=== PATIENT | female | born 1990 | race Caucasian/White ===

== ENCOUNTER 2017-01-27 09:47 | Inpatient (IN) | payer OTHER ==
--- NOTE | 2017-01-26 21:36 | PDHPUP ---
History & Physical Update H&P update statement: This history and physical update is based on an assessment of the patient which was completed after admission or registration (within 24 hours), but prior to the surgery/procedure. 1. Bilateral~Hip Dyplasia, Left side symptomatic with~resultant labral tear 2. Left~Femoroacetabular impingement (RONAK) Cam type, 3. Left excessive femoral ante-torsion (48 degrees) HISTORY OF PRESENT ILLNESS: Akankshais a 25 y.o.~~~active female~who I have had the pleasure to consult on today.~I have enjoyed meeting her. She~lives in [place], [place]. 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 ~She~is ; she~has 3~children. ~Akanksha enjoys running, walking, hiking and working out but not active now. Robyn's left~hip pain started in~January~2012, with no~recalled trauma or injury, and with no~previous complaints.~Akankshadoes not have~a known history of hip dysplasia. Presentation today is of~anterior, groin left~hip pain. ~The hip does~wake her~ at night and does~click and catch on her. Sitting can be uncomfortable~for her. Akankshadoes~report suffering from lower back pain episodes and she has scoliosis. Akankshahas~participated in physical therapy for 1.5 years~and has not~tried other conservative measures including hip injections . She~has not~received sufficient symptomatic improvement. Akankshahas~utilized medication for pain management, including NSAID and OTC acetaminophen. Akankshahas used medication for 3 years. Akankshahas occasional clicking on the right. Akankshaunderstands that she~has a hip and pelvis problem which should be researched and wishes to get a better understanding of her~hip status, followed by an establishment of a treatment strategy, hoping she~would be able to get back to her~well being active life. History: Past medical history: ~ None which is relevant Relevant familial history: None which is relevant Past surgical history: Bladder Surgery in 1999 Akankshadenies problematic issues with general anesthesia in the past. I have reviewed, verified and agree with the past medical, surgical, family and social history. Current Medications:~has a current medication list which includes the following prescription(s): ibuprofen and norgestimate-ethinyl estradiol. ALLERGIES:~has No Known Allergies. Objective: Physical Examination: Akankshais 5~feet 6~inches tall and weighs~155~Lbs. Akankshais AAO x3; she~is well -nourished, in NAD. Skin is warm and dry. ~Breathing is non-labored. ~CV with RRR by pulse. Abdomen is soft, NTND. Currently, she~walks with a normal~gait. Trendelenburg sign is negative~and proprioception~is reduced, both~sides. She~presents~with moderate~signs of joint laxity.~Beightons Score: 5 She~is fit looking. ~~ Lower spine examination is negative~for sciatic or femoral nerve irritation with negative~SLR &~femoral stretch tests. Range of motion of the spine is normal~for flexion, extension, and rotations, with no~associated pain. Strength, Sensation and pulses are normal - bilaterally Ankles and knees exams are normal~and no~mal-alignment is evident. She~has~no leg length discrepancy. Thigh circumference is symmetric~with no evidence for muscle atrophy~on both~ sides. Hip ROM (degrees): FL ER At 90~hip FL IR At 90~hip FL AB AD EX IR Neutral hip ER Neutral hip R 115 75 35 40 15 10 55 50 L 110P 45 50 45 5 10 70 30 (Pain inhibition) Specific hip and pelvis tests: Quadrant ARCHIE Roll Add. Longus R + + Negative Negative L +++ +++ Negative +++ Glut. Med ITB Pos. Imp R Negative 5/5 strength Negative 5/5 strength Negative L Negative 5/5 strength Negative 5/5 strength Negative Squeeze test measured normal Bony Symphysis pubis is pain free~to touch while concentric activity of the rectus abdominis, does not~produce pain at its insertion. Ilio Psos specific tests are negative for pain during cycling for both hips~and remarkable for no snap. HF has good strength, non-painful both hips. Anterior~capsule tenderness on the left. Greater trochanteric burse is pain free~on both hips. Piriformis tests: FAIR is negative, with no~local signs of neuritis related to sciatic nerve. SIJs examination is produces pain on left side~with normal~ARCHIE in relation and local tenderness. Hamstrings tests are negative~functional contraction and positive~tendinopathy the left hip~at insertion. On a daily basis, the following percentages reflect Rashads overall total pain: Deep hip: 90% Left SIJ: 10% Imaging: Radiology studies which I~have personally reviewed, analyzed and measured are below: XR: AP of the hip and pelvis: Performed in a good~technique Coccyx to pubic symphysis distance 3.3~cm. Upright. Zero degrees. [place]~Lines are interrupted on the left.~~~~~~~~~~~~~~~~~~~~~~~ No~Pathological signs are seen in the Symphysis Pubis. No~Pathological signs are seen at the Ischial~tuberosity. ~ Specific measurements show: NSA~ LCE Sourcil~Angle Sharp's angle Lat. Cam Lat. Pincer C.Over~sign Head~Coverage % ATDmm R 141 10 16 47 + - - 51 N L 134 -8 27 56 + - - 46 N Pos. wall sign ISS NAD ~~Dysplasia Comments R Negative Negative 26.2~mm +++ L Negative Negative 25.7~mm +++ Sclerosis Sup. Lat. OA Cysts Joint Space-WBZ Joint Space-Medial R + Negative Negative 7.5~mm 5.4~mm L + Negative Negative 7.5~mm 7.9~mm X Table lateral: Anterior cam lesion is seen~on both hips. Alpha Angle: ~ Right 71~degrees Left 67~degrees CT MEASUREMENTS: Right hip: Lateral center edge angle: 11 degrees Equatorial acetabular version angle: 29 degrees anteverted. Cranial acetabular version angle: 19 degrees anteverted. Femoral neck shaft angle: 140 degrees. Right femoral torsion measures 19 degrees. Left hip: Lateral center edge angle: 5 degrees Equatorial acetabular version angle: 27 degrees anteverted. Cranial acetabular version angle: 13 degrees anteverted. Femoral neck shaft angle: 141 degrees Left femoral torsion measures 48 degrees. Impression and plan:Zoran Valeis a 25 y.o.~active female~suffering from symptomatic left~hip pain due to Left Hip Dyplasia with symptomatic~labral tear and~Femoroacetabular impingement (RONAK) Cam type,~causing significant disability to her~and altering~ her~sport and life activities. She has similar radiographic features on the right side. Physical examination, imaging, and her~story correspond with the diagnosis mentioned above. I explained that hip dysplasia is a condition wherein the hip joint has excessive play~and instability due to a variety of factors, including the depth and adequacy of the socket, the orientation of the femur bone, and ligament laxity around the hip joint. Dysplasia ranges in severity from borderline to oleg, with treatment options being specific to the specific nature of the problem. Left untreated, the instability in the hip joint can cause progressive tearing of the labrum and deterioration of the surface cartilage, ultimately resulting in progressive osteoarthritis of the hip. I explained that femoroacetabular impingement (RONAK - Cam type) arises due to a bony or soft tissue conflict between the femur (ball) and acetabulum (socket) caused by an abnormality in the shape of the femoral head and neck. Over time, repetitive impingement can result in damage to the labrum and adjacent surface cartilage within the socket, ultimately giving rise to progressive osteoarthritis of the hip. I explained that although a labral tear can be a source of pain, it is rarely the root of the problem and typically occurs secondary to an underlying abnormality in the shape and mechanics of the hip joint. I reviewed conservative treatment options for Dysplasia and RONAK including activity modification to avoid positions of impingement or instability, physical therapy, non-steroidal anti-inflammatory medications, and various injections (corticosteroid and PRP) aimed at reducing inflammation in the hip joint or/and preventing dynamic instability and impingement. PRP injections may promote healing and reduce symptoms in certain cases but it will not repair chronically damaged tissue. Although these measures may help to buy time~and reduce current level of symptoms, they are not a definitive solution to the problem given the underlying abnormality in the shape of the hip joint. Patients who have failed conservative management and continue to experience symptoms are candidates for definitive surgical treatment, which may consist of hip arthroscopy alone or in combination with more invasive bony realignment procedures of the hip socket and/or femur called periacetabular osteotomy (RYLIE) or derotational femoral osteotomy (DFO). Hip arthroscopy typically includes treating the labrum with either repair or reconstruction of the torn labrum; as well as addressing the underlying abnormalities by restoring the normal shape to the hip joint. If the cartilage is damaged a Microfracture surgical procedure may also be necessary to help stimulate the growth of fibrocartilage. If a patient requires a labral reconstruction or a Microfracture, the initial rehabilitation from the surgery may take longer, but the intermediate project manager results are typically favorable. I reviewed the technical aspects of hip arthroscopy including risks, benefits, and expected course of recovery. Robyn~understands that hip arthroscopy is a minimally invasive outpatient procedure carried out through small incisions on the outer aspect of the hip joint. During surgery, the labral tear will be identified and either repaired or reconstructed~using bone anchors and suture material. Additionally, any excessive bone will be removed with a high-speed noelle to reshape the hip joint and restore normal anatomy. Risks include infection, bleeding, injury to nearby nerves or vessels, stiffness, persistent pain, instability, venous thromboembolic disease, and traction related complications including temporary foot numbness. Rarely, revision surgery may be required to address these problems. Overall recovery takes approximately 4~~ 8~months depending on the extent of damage and degree of repair. In the event that the labral tissue quality is inadequate for successful repair and healing, Robyn~understands that a labral reconstruction will be performed. This procedure entails placing a cadaver tissue graft within the hip joint and stabilizing it with bone anchors to build a new labrum. The overall recovery time for labral reconstruction is similar to that of labral repair, although the surgical procedure takes longer to perform. I reviewed the technical aspects of periacetabular osteotomy (RYLIE) including risks, benefits, and expected course of recovery. Robyn~understands that RYLIE is an inpatient procedure carried out through two medium sized incisions on the front and back of the hip joint. The hip socket is cut, realigned, and stabilized with 2 ~3 internal screws. Risks include infection, bleeding, injury to nearby nerves or vessels, stiffness, persistent pain, instability, failure of bony healing, implant related complications, and venous thromboembolic disease. Rarely, revision surgery may be required to address these problems. Risks, potential complications, side effects and recovery from surgical procedure were discussed in length. We explained how this surgery is an open procedure, and though patients tend to do well in the long-term, it involves significant pain in the first 2-4 weeks post-op and a rather lengthy rehab.~Overall recovery takes approximately 6 ~12~months depending on the extent of damage and degree of repair. Akankshaunderstands that she~will undergo hip arthroscopy 1 week prior to the RYLIE to address damage inside the hip joint. Akankshaunderstands that hip arthroscopy and RYLIE are two separate procedures that are best performed one week apart, with the arthroscopy commencing first to "tighten up" any pathology evident in the hip joint (labral repair, etc.) and the RYLIE open procedure occurring 7-10 days later to realign the acetabulum. Akankshawill review the info presented. In order to obtain more detailed information regarding the alignment, orientation, and shape of the bony hip and pelvis I will order a CT scan to be performed. The results of the CT scan, including femoral torsion and acetabular version measured values and 3D images, will aid me in deciding on the best treatment strategy and surgical pre-planning. In order to evaluate the integrity of the surface cartilage within the hip joint , I will order a delayed gadolinium enhanced MRI of cartilage (dGEMRIC). This study will determine whetherBenitezis a good candidate for hip preservation surgery. Akankshawill talk with our surgical attendant about possible surgery dates. Akankshais happy with this plan. I have also supplied her~with handouts, outlining the expected surgical treatment and rehab involved. I wish~Akankshaall the best, ~~ Sunny Ren MD
[~2017-01-27 09:47] MED LIST: BUPIVACAINE/EPI 0.25% 30 ML SDV ONE; MIDAZOLAM 2 MG/2 ML VIAL IVP ONE; SCOPOLAMINE HYDROBROMIDE 1.5 MG PATCH TD ONE
[2017-01-27] MEDS ORDERED: ceFAZolin 2 GM/DEXTROSE 100 ML IV ONE (10:00)
[2017-01-27] MEDS ORDERED: ACETAMINOPHEN 500 MG TAB PO ONE (10:00)
[2017-01-27] MEDS ORDERED: PREGABALIN 150 MG CAP PO ONE (10:00)
[2017-01-27] MEDS ORDERED: LIDOCAINE 1% 2 ML INJ ID PRN (10:11)
[2017-01-27] MEDS ORDERED: LR 1,000 ML IV ONE (10:11)
--- NOTE | 2017-01-27 10:23 | PDANEPAE ---
ANE History of Present Illness Patient presents for surgery ANE Past Medical History - Cardiovascular History Hx Hypertension: No Hx Arrhythmias: No Hx Chest Pain: No Hx Coronary Artery / Peripheral Vascular Disease: No Hx CHF / Valvular Disease: No Hx Palpitations: No - Pulmonary History Hx COPD: No Hx Asthma/Reactive Airway Disease: No Hx Recent Upper Respiratory Infection: No Hx Oxygen in Use at Home: No - Neurologic History Hx Cerebrovascular Accident: No Hx Seizures: No Hx Dementia: No - Endocrine History Hx Diabetes: No - Renal History Hx Renal Disorders: Yes - Liver History Hx Hepatic Disorders: No - Neurological & Psychiatric Hx Hx Neurological and Psychiatric Disorders: No - Cancer History Hx Cancer: No - Congenital Disorder History Hx Congenital Disorders: Yes - GI History Hx Gastrointestinal Disorders: No - Chronic Pain History Chronic Pain: Yes (bilateral hips) ANE Review of Systems Review of systems is: negative - Exercise capacity Exercise capacity: >=4 METS METS (RN): 5 METS ANE Patient History - Allergies Allergies/Adverse Reactions: No Known Allergies Allergy (Verified 12/19/16 11:09) - Home Medications Home Medications: Acetaminophen [Tylenol ES 500 mg (*)] 500 mg PO DAILY PRN 12/06/16 [Last Taken Unknown] Ferrous Sulfate [Slow Fe 140 MG (*)] 140 mg PO DAILY 12/06/16 [Last Taken Unknown] Ibuprofen [Motrin (*)] 400 mg PO DAILY PRN 12/06/16 [Last Taken Unknown] Loratadine [Claritin 10 mg] 10 mg PO DAILY PRN 12/06/16 [Last Taken Unknown] Multivitamins [Multivitamin (*)] 1 each PO DAILY 12/06/16 [Last Taken Unknown] Naproxen Sodium [Aleve 220 MG (*)] 220 mg PO DAILY PRN 12/06/16 [Last Taken Unknown] Norgestimate-Ethinyl Estradiol [Sprintec] 1 each PO DAILY 12/06/16 [Last Taken Unknown] - NPO status NPO Since - Liquids (Date): 01/26/17 NPO Since - Solids (Date): 01/26/17 NPO Since - Solids (Time): 20:00 - Anes Hx Anes Hx: post operative nausea - Smoking Hx Smoking Status: Never smoked - Family Anes Hx Family Hx Anesthesia Complications: none ANE Labs/Vital Signs - Vital Signs Blood Pressure: 125/88 Heart Rate: 111 Respiratory Rate: 16 O2 Sat (%): 99 Height: 167.64 cm Weight: 68.039 kg ANE Physical Exam - Airway Mallampati Score: Class 1 - Pulmonary Pulmonary: no respiratory distress - Cardiovascular Cardiovascular: regular rate and rhythym - ASA Status ASA Status: II (Prominent upper incisors) ANE Anesthesia Plan Anesthesia Plan: general endotracheal anesthesia (RBA discussed, patient declines pre-op epidural but consents to PO epidural and or ss FNB in PACU if needed. )
[2017-01-27] MEDS ORDERED: fentaNYL 100 MCG/2 ML INJ ONE (10:26)
[2017-01-27] MEDS ORDERED: PROPOFOL 200 MG/20 ML VIAL ONE (10:26)
[2017-01-27] MEDS ORDERED: DEXAMETHASONE 4 MG/ML VIAL ONE (10:26)
[2017-01-27] MEDS ORDERED: PROPOFOL/EMULSION 500 MG/50 ML BOTTLE IV ONE ×2 (10:26→14:15)
[2017-01-27] MEDS ORDERED: LIDOCAINE 2% 5 ML SDV ONE (10:27)
[2017-01-27] MEDS ORDERED: ONDANSETRON 4 MG/2 ML VIAL ONE (10:27)
[2017-01-27] MEDS ORDERED: MIDAZOLAM 2 MG/2 ML VIAL ONE (10:42)
[2017-01-27] MEDS ORDERED: METOCLOPRAMIDE 10 MG/2 ML VIAL ONE (12:44)
[2017-01-27] MEDS ORDERED: SUGAMMADEX SODIUM 200 MG/2 ML VIAL IVP ONE (12:44)
[2017-01-27] MEDS ORDERED: MINERAL OIL 10 ML VIAL ONE (12:52)
[2017-01-27] MEDS ORDERED: ROCURONIUM 50 MG/5 ML VIAL ONE (13:07)
[2017-01-27] MEDS ORDERED: HYDROmorphONE/DILAUDID 2 MG/ML INJ ONE ×2 (13:12→15:58)
[2017-01-27] MEDS ORDERED: KETAMINE 100 MG/10 ML SYR ONE (15:02)
[2017-01-27] MEDS ORDERED: KETOROLAC 30 MG/1 ML SDV ONE (15:59)
[2017-01-27] MEDS ORDERED: PROMETHAZINE HCL 25 MG/ML INJ IVP PRN (16:52)
[2017-01-27] MEDS ORDERED: MEPERIDINE 25 MG/ML SYR IVP PRN (16:52)
[2017-01-27] MEDS ORDERED: ONDANSETRON 4 MG/2 ML VIAL IVP PRN ×2 (16:52→18:26)
[2017-01-27] MEDS ORDERED: ALBUTEROL 3 ML DEYVIAL IH PRN (16:52)
[2017-01-27] MEDS ORDERED: OXYCODONE/APAP 5/325 TAB PO PRN (16:52)
[2017-01-27] MEDS ORDERED: NALOXONE HCL 0.4 MG/ML INJ IVP PRN ×2 (16:52→18:30)
[2017-01-27] MEDS ORDERED: fentaNYL 100 MCG/2 ML INJ IVP PRN (16:52)
[2017-01-27] MEDS ORDERED: HYDROmorphONE/DILAUDID 1 MG/ML SYR IVP PRN (16:52)
--- NOTE | 2017-01-27 17:40 | POSTANESTH ---
Post Anesthetic Evaluation Cardiovascular Status: Normal, Stable Respiratory Status: Requires Airway Assist Level of Consciousness/Mental Status: Moderately Sleepy Pain Control: Adequate, Prn Tx Ordered Nausea/Vomiting Control: Adequate, Prn Tx Ordered Complications Possibly Related to Anesthesia: None Noted
[2017-01-27] MEDS ORDERED: POLYETHYLENE GLYCOL 3350 17 GM PKT PO PRN (18:26)
[2017-01-27] MEDS ORDERED: ONDANSETRON DISINTEGRATING 4 MG TAB PO PRN (18:26)
[2017-01-27] MEDS ORDERED: MAGNESIUM HYDROXIDE 30 ML UDCUP PO PRN (18:26)
[2017-01-27] MEDS ORDERED: LACTULOSE 20 GM/30 ML UDCUP PO PRN (18:26)
[2017-01-27] MEDS ORDERED: BISACODYL 10 MG SUPP PR PRN (18:26)
[2017-01-27] MEDS ORDERED: HYDROmorphONE/DILAUDID 1 MG/ML SYR IVP ONE (18:30)
[2017-01-27] MEDS ORDERED: HYDROmorphONE/DILAUDID 6 MG/30 ML PCA IV PRN (18:30)
[2017-01-27] MEDS: SENNOSIDES/DOCUSATE SODIUM TAB PO SCH (20:35)
--- NOTE | 2017-01-27 21:36 | SUROPNOTE ---
MEHNAZ Operative Report - Surgery Surgery was performed at [facility] on 01/27/17 ~~~~~~ ~~ OPERATION NOTE~on Robyn Meng Diagnosis: 1. Left~Femoroacetabular impingement (RONAK) Cam type, Mixed type, Cartilage damage 2. Left~Hip Dyplasia Indication: Failure to obtain satisfactory results with long standing conservative measures. Operation~1:~Left~Arthroscopic Labral repair, Debridement of loose cartilage flap + micro fracture of acetabulum, CAM resection, Synovectomy, Capsular repair Surgeon: ~Obi Rios MD Bus Cleaner:~Loc ZAVALA Anaesthetic:~General Findings~~Left~Hip: Labrum: Torn and Frayed around 12-4~O'clock.~attached to inside-out flap, very hypertrophic Acetabulum: Cartilage damage grade 4-dysplasia flap,~extending around chondrolabral junction, circumferentially, from 12 (bubble)~to 4, 20-50% rim to acatabular fossa Fovea: Partial tear of LT Femoral Head: Normal cartilage Synovium: severe~synovitis Peripheral Compartment: Anterolateral CAM between 12~Oclock superiorly and 5~O clock anteriorly - minimal Procedure: Supine on operating table. General anaesthetic. Antibiotics given. Standard traction set up, without perineal post. A spinal needle was guided to the femoral head neck junction and traction gradually applied with the joint vented. Local anesthetic infiltrated into the skin around the portals. Once 15mm of distraction was achieved the hip needle was then passed into the joint staying as close to the femoral head as possible. A Nytenol wire was passed through the hip needle ensuring that it passed all the way to the fovea to confirm central placement of the needle. Skin was incised and then the portals sequentially dilated to 7 mm. Switching stick inserted and 30 scope passed over the top. Under dry scope conditions the anterior portal was created by passing the hip needle into the joint under direct vision. Again this was dilated up to 7 mm and the slotted canule was inserted. The saline was then turned on and the joint irrigated. The joint was carefully inspected and photographed with findings as above. The arthroscope was switched to the 70 scope to complete the inspection. A longitudinal intra portal capsulotomy was then performed using chilkat blade and the 50 Arthrocare wand to connect the two portals. Central Compartment Intervention: Synovectomy was performed. Large IO flap was debrided. Bone was rasped. The labrum was then repaired~with 3~peek anchors IO, achieving good anatomical rim fixation. Microfractures were applied to the area where the bone was exposed from missing cartilage. ~ LT was treated with RF wand to shrink and stabilize reactive tissue.~ Peripheral Compartment Intervention: A box-shaped capsulotomy was made with the assistance of SpeedStitch traction suture. This allowed traction on the capsule and a good view of the femoral neck with smaller capsulotomy. The articular margin where sphericity was lost was marked with the Arthrocare wand under X-ray control. Bone lateral to this was removed with the the noelle. Portals were switched to deal with the superior headneck junction. Care was taken not to stray posterior and laterally in view of the location of the retinacular vessels. The cam lesion was addressed from 12~to 5~Oclock. A dynamic impingement test was undertaken and vision with 90 of flexion and 15 of internal rotation to confirm that there was no bony or soft tissue impingement or deformation of the labrum. ~Good clearance was obtained with good labral seal. The joint was thoroughly irrigated of any loose debris and the anterior capsule was repaired with 3~No.1 vicryl stitches, closing 80% of the capsulotomy. The skin was then closed with Nylon. Padded dressing was applied. ~~ OPERATION NOTE~on Robyn Meng Diagnosis:Left~Hip Dyplasia~~- Anteverted femoral neck / antetorsion of femur Indication:~Failure to obtain satisfactory results with long standing conservative measures. Surgeon: Obi Rios MD Bus Cleaner: Chip Culver MD Anaesthetic: General Operation~2: Open left~derotational femoral osteotomy Procedure: Robyn~was positioned supine on a distraction table, with the legs in a scissors position (operated leg leveled, contra-lateral leg hyperextended) so fluoroscopy could obtain both AP and lateral views. A 4~cm incision was made proximal to the greater trochanter (GT). Using a drill guide and a drill, an entry point was established at the tip of the GT followed by introduction of ball-tip guide wire~introduced through the femoral canal. ~~After measurements of required nail length and width, rimming was performed to 10~mm (in 0.5 mm increments) distal to the femoral isthmus. Rimming to~14~mm was performed~to the level of the area of the planned osteotomy. An intramedullary saw (12~mm) was introduced into the femoral canal, 6~cm below the lesser trochanter. In small increments, the medullary saw performed a circumferential inside out cut through the femur. This cut was completed in an outside-in manner using a 4~mm osteotome. Just before the osteotomy was complete and displacement was confirmed with fluoroscopy, 2 Ascencion pins were drilled~into the femur bone ( one to the lateral GT, one to the supra-condylar region of the distal femur). Using fluoroscopic guidance the angle between the Ascencion pins~as measured with a goniometer~and boot scale, the varus and derotational osteotomy was performed by rotating the foot outward. The correction planned and obtained was approximately 30~degrees external rotation (internal rotation of the femur to a relative retroverted torsion). A 9~mm~diameter/ 360~mm length nail was introduced into the femoral canal and was~locked proximally and distally with screws. Post-operative X-rays were obtained to confirm position and location of nail. Ascencion pins were removed,~ITB was approximated, and sub-cutis and skin layers were closed with absorbable suture/nylon/stables. After surgery,~Robyn~moved both lower limbs and had no NV compromise. ROM in neutral hip corresponded well with the torsion change. Evaluation under Anesthesia: Pre: IR 90 ER 90 ABD Flexion Right 30 70 45 110 Left 50 50 45 110 Post op instructions: 1. Non~weight bearing crutches for 6~weeks 2. Pain killers as prescribed 3. Follow up visit with me, as scheduled, where a rehab protocol would be discussed 4. Avoid hip external rotation for 4 weeks 5. ~~25 days of NSAIDS need to be taken in order to prevent the possible formation of HO - stop 2 days before RYLIE 6. Continuous SCDs~ 7.~CPM 50~degrees until RYLIE Kind regards, ~~ Dr. Obi Rios
[2017-01-27] MEDS: Norgestimate-Ethinyl Estradiol [Sprintec 28 Day Tablet] PO SCH (21:45)
[2017-01-27] MEDS: oxyCODONE IR 5 MG TAB PO PRN ×2 (21:54→23:47)
[2017-01-27] MEDS: DIAZEPAM 2 MG TAB PO PRN (23:47)
[2017-01-28] MEDS: oxyCODONE IR 5 MG TAB PO PRN ×5 (04:11→20:35)
[2017-01-28 05:08] LABS: HEMATOCRIT 26.6 % (38.0-47.0); HEMOGLOBIN 9.2 g/dL (12.6-16.3); MEAN CELL HEMOGLOBIN 32.3 pg (27.9-34.1); MEAN CELL HEMOGLOBIN CONCENTR. 34.6 g/dL (32.4-36.7); MEAN CELL VOLUME 93.3 fL (81.5-99.8); RED BLOOD CELL COUNT 2.85 10^6/uL (4.18-5.33); RED CELL DISTRIBUTION WIDTH 11.7 % (11.5-15.2)
[2017-01-28 05:09] LABS: ANION GAP 7 mEq/L (8-16); CALCIUM 8.5 mg/dL (8.5-10.4); CARBON DIOXIDE 23 mEq/l (22-31); CHLORIDE 103 mEq/L (97-110); CREATININE 0.6 mg/dL (0.6-1.0); GLOMERULAR FILTRATION RATE > 60; GLUCOSE 113 mg/dL (70-100); POTASSIUM 3.7 mEq/L (3.5-5.2); SODIUM 133 mEq/L (134-144)
[2017-01-28] MEDS: SENNOSIDES/DOCUSATE SODIUM TAB PO SCH ×2 (08:38→20:36)
[2017-01-28] MEDS: ACETAMINOPHEN 325 MG TAB PO PRN ×2 (10:34→20:36)
[2017-01-28] MEDS: NAPROXEN SODIUM 220 MG TAB PO PRN ×2 (10:34→18:30)
[2017-01-28] MEDS: DIAZEPAM 2 MG TAB PO PRN ×2 (11:45→20:36)
[2017-01-28] MEDS: Norgestimate-Ethinyl Estradiol [Sprintec 28 Day Tablet] PO SCH (20:37)
[2017-01-29] MEDS: oxyCODONE IR 5 MG TAB PO PRN ×4 (00:39→10:39)
[2017-01-29] MEDS: DIAZEPAM 2 MG TAB PO PRN (05:24)
[2017-01-29] MEDS: ACETAMINOPHEN 325 MG TAB PO PRN ×2 (05:24→10:38)
[2017-01-29 06:25] VITALS: BP 97/60
[2017-01-29 07:35] VITALS: PULSE 95; RESP 14; TEMP 98.4; O2SAT 94
[2017-01-29] MEDS: SENNOSIDES/DOCUSATE SODIUM TAB PO SCH (07:54)
[2017-01-29] MEDS: NAPROXEN SODIUM 220 MG TAB PO PRN (07:55)
--- NOTE | 2017-01-29 10:14 | SOAPPROG ---
MARLY Progress Note Assessment/Plan: Assessment: 2 days post op Left hip arthroscopy Left Derotational Osteotomy Plan: DC home LEFT RYLIE on 02/03/17 01/29/17 10:10 Subjective: Robyn is doing quite well this morning. Even without an epidural, her pain is well managed with oral analgesics. She denies any cp, no sob, or nausea. She is ready to go home. Objective: Vital Signs Temp Pulse Resp BP Pulse Ox 36.9 C 95 14 97/60 L 94 01/29/17 07:32 01/29/17 07:32 01/29/17 07:32 01/29/17 04:00 01/29/17 07:32 Laboratory Results 01/28/17 04:28 01/28/17 04:28 01/28/17 01/29/17 01/30/17 05:59 05:59 05:59 Intake Total 4700 1000 Output Total 3200 1850 Balance 1500 -850 Well appearing in NAD Left hip: dressings clean, dry, intact some scattered ecchymosis and edema NVI distally edema and ecchymosis down to knee full ROM of foot and ankle - Pending Discharge Pending Discharge Within 24 Hours: Yes Pending Discharge Date: 01/30/17 Pending Discharge Time: 11:00 ICD10 Worksheet Patient Problems: Problems Problem Status Onset Post-op pain Acute - ICD10 Problem Qualifiers (1) Post-op pain
[2017-01-29] MEDS ORDERED: ASPIRIN EC 81 MG TAB PO SCH (18:26)
== END 2017-01-29 11:56 | disposition home or self-care (01) | DRG 482 ==
LOC: F3N 09:47 → PREINTOOBSV 10:31 → OBSVTOIN 18:26 → F3N 18:38
PROVIDERS: ADMIT Orthopaedic Surgery Sports Medicine; ATTEND Orthopaedic Surgery Sports Medicine
DX: Q65.89 Other specified congenital deformities of hip (principal); M25.852 Other specified joint disorders, left hip; M41.9 Scoliosis, unspecified
CPT/HCPCS: 97116-GP; 97161-GP; 97166-GO; 97530-GP; 97535-GO; C1713; C1769; J0690; J1100; J1170; J1885; J2250; J2405; J2704; J2765; J3010

== ENCOUNTER 2017-02-03 11:10 | Inpatient (IN) | payer OTHER ==
--- NOTE | 2017-01-30 11:01 | PDGENHP ---
History and Physical - Chief Complaint Left Hip Pain - History of Present Illness 1. Bilateral~Hip Dyplasia, Left side symptomatic with~resultant labral tear 2. Left~Femoroacetabular impingement (RONAK) Cam type, 3. Left excessive femoral ante-torsion (48 degrees) HISTORY OF PRESENT ILLNESS: Akankshais a 25 y.o.~~~active female~who I have had the pleasure to consult on today.~I have enjoyed meeting her. She~lives in [place], [place]. 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 ~She~is ; she~has 3~children. ~Akanksha enjoys running, walking, hiking and working out but not active now. Robyn's left~hip pain started in~January~2012, with no~recalled trauma or injury, and with no~previous complaints.~Akankshadoes not have~a known history of hip dysplasia. Presentation today is of~anterior, groin left~hip pain. ~The hip does~wake her~ at night and does~click and catch on her. Sitting can be uncomfortable~for her. Akankshadoes~report suffering from lower back pain episodes and she has scoliosis. Akankshahas~participated in physical therapy for 1.5 years~and has not~tried other conservative measures including hip injections . She~has not~received sufficient symptomatic improvement. Akankshahas~utilized medication for pain management, including NSAID and OTC acetaminophen. Akankshahas used medication for 3 years. Akankshahas occasional clicking on the right. Akankshaunderstands that she~has a hip and pelvis problem which should be researched and wishes to get a better understanding of her~hip status, followed by an establishment of a treatment strategy, hoping sheZoranwould be able to get back to her~well being active life. History: Past medical history: ~ None which is relevant Relevant familial history: None which is relevant Past surgical history: Bladder Surgery in 1999 Akankshadenies problematic issues with general anesthesia in the past. I have reviewed, verified and agree with the past medical, surgical, family and social history. Current Medications:~has a current medication list which includes the following prescription(s): ibuprofen and norgestimate-ethinyl estradiol. ALLERGIES:~has No Known Allergies. Objective: Physical Examination: Akankshais 5~feet 6~inches tall and weighs~155~Lbs. Akankshais AAO x3; she~is well -nourished, in NAD. Skin is warm and dry. ~Breathing is non-labored. ~CV with RRR by pulse. Abdomen is soft, NTND. Currently, she~walks with a normal~gait. Trendelenburg sign is negative~and proprioception~is reduced, both~sides. She~presents~with moderate~signs of joint laxity.~Beightons Score: 5 She~is fit looking. ~~ Lower spine examination is negative~for sciatic or femoral nerve irritation with negative~SLR &~femoral stretch tests. Range of motion of the spine is normal~for flexion, extension, and rotations, with no~associated pain. Strength, Sensation and pulses are normal - bilaterally Ankles and knees exams are normal~and no~mal-alignment is evident. She~has~no leg length discrepancy. Thigh circumference is symmetric~with no evidence for muscle atrophy~on both~ sides. Hip ROM (degrees): FL ER At 90~hip FL IR At 90~hip FL AB AD EX IR Neutral hip ER Neutral hip R 115 75 35 40 15 10 55 50 L 110P 45 50 45 5 10 70 30 (Pain inhibition) Specific hip and pelvis tests: Quadrant ARCHIE Roll Add. Longus R + + Negative Negative L +++ +++ Negative +++ Glut. Med ITB Pos. Imp R Negative 5/5 strength Negative 5/5 strength Negative L Negative 5/5 strength Negative 5/5 strength Negative Squeeze test measured normal Bony Symphysis pubis is pain free~to touch while concentric activity of the rectus abdominis, does not~produce pain at its insertion. Ilio Psos specific tests are negative for pain during cycling for both hips~and remarkable for no snap. HF has good strength, non-painful both hips. Anterior~capsule tenderness on the left. Greater trochanteric burse is pain free~on both hips. Piriformis tests: FAIR is negative, with no~local signs of neuritis related to sciatic nerve. SIJs examination is produces pain on left side~with normal~ARCHIE in relation and local tenderness. Hamstrings tests are negative~functional contraction and positive~tendinopathy the left hip~at insertion. On a daily basis, the following percentages reflect Robyn's overall total pain: Deep hip: 90% Left SIJ: 10% Imaging: Radiology studies which I~have personally reviewed, analyzed and measured are below: XR: AP of the hip and pelvis: Performed in a good~technique Coccyx to pubic symphysis distance 3.3~cm. Upright. Zero degrees. [place]~Lines are interrupted on the left.~~~~~~~~~~~~~~~~~~~~~~~ No~Pathological signs are seen in the Symphysis Pubis. No~Pathological signs are seen at the Ischial~tuberosity. ~ Specific measurements show: NSA~ LCE Sourcil~Angle Sharp's angle Lat. Cam Lat. Pincer C.Over~sign Head~Coverage % ATDmm R 141 10 16 47 + - - 51 N L 134 -8 27 56 + - - 46 N Pos. wall sign ISS NAD ~~Dysplasia Comments R Negative Negative 26.2~mm +++ L Negative Negative 25.7~mm +++ Sclerosis Sup. Lat. OA Cysts Joint Space-WBZ Joint Space-Medial R + Negative Negative 7.5~mm 5.4~mm L + Negative Negative 7.5~mm 7.9~mm X Table lateral: Anterior cam lesion is seen~on both hips. Alpha Angle: ~ Right 71~degrees Left 67~degrees CT MEASUREMENTS: Right hip: Lateral center edge angle: 11 degrees Equatorial acetabular version angle: 29 degrees anteverted. Cranial acetabular version angle: 19 degrees anteverted. Femoral neck shaft angle: 140 degrees. Right femoral torsion measures 19 degrees. Left hip: Lateral center edge angle: 5 degrees Equatorial acetabular version angle: 27 degrees anteverted. Cranial acetabular version angle: 13 degrees anteverted. Femoral neck shaft angle: 141 degrees Left femoral torsion measures 48 degrees. Impression and plan:Zoran Valeis a 25 y.o.~active female~suffering from symptomatic left~hip pain due to Left Hip Dyplasia with symptomatic~labral tear and~Femoroacetabular impingement (RONAK) Cam type,~causing significant disability to her~and altering~ her~sport and life activities. She has similar radiographic features on the right side. Physical examination, imaging, and her~story correspond with the diagnosis mentioned above. I explained that hip dysplasia is a condition wherein the hip joint has excessive play~and instability due to a variety of factors, including the depth and adequacy of the socket, the orientation of the femur bone, and ligament laxity around the hip joint. Dysplasia ranges in severity from borderline to oleg, with treatment options being specific to the specific nature of the problem. Left untreated, the instability in the hip joint can cause progressive tearing of the labrum and deterioration of the surface cartilage, ultimately resulting in progressive osteoarthritis of the hip. I explained that femoroacetabular impingement (RONAK - Cam type) arises due to a bony or soft tissue conflict between the femur (ball) and acetabulum (socket) caused by an abnormality in the shape of the femoral head and neck. Over time, repetitive impingement can result in damage to the labrum and adjacent surface cartilage within the socket, ultimately giving rise to progressive osteoarthritis of the hip. I explained that although a labral tear can be a source of pain, it is rarely the root of the problem and typically occurs secondary to an underlying abnormality in the shape and mechanics of the hip joint. I reviewed conservative treatment options for Dysplasia and RONAK including activity modification to avoid positions of impingement or instability, physical therapy, non-steroidal anti-inflammatory medications, and various injections (corticosteroid and PRP) aimed at reducing inflammation in the hip joint or/and preventing dynamic instability and impingement. PRP injections may promote healing and reduce symptoms in certain cases but it will not repair chronically damaged tissue. Although these measures may help to buy time~and reduce current level of symptoms, they are not a definitive solution to the problem given the underlying abnormality in the shape of the hip joint. Patients who have failed conservative management and continue to experience symptoms are candidates for definitive surgical treatment, which may consist of hip arthroscopy alone or in combination with more invasive bony realignment procedures of the hip socket and/or femur called periacetabular osteotomy (RYLIE) or derotational femoral osteotomy (DFO). Hip arthroscopy typically includes treating the labrum with either repair or reconstruction of the torn labrum; as well as addressing the underlying abnormalities by restoring the normal shape to the hip joint. If the cartilage is damaged a Microfracture surgical procedure may also be necessary to help stimulate the growth of fibrocartilage. If a patient requires a labral reconstruction or a Microfracture, the initial rehabilitation from the surgery may take longer, but the senior living results are typically favorable. I reviewed the technical aspects of hip arthroscopy including risks, benefits, and expected course of recovery. Robyn~understands that hip arthroscopy is a minimally invasive outpatient procedure carried out through small incisions on the outer aspect of the hip joint. During surgery, the labral tear will be identified and either repaired or reconstructed~using bone anchors and suture material. Additionally, any excessive bone will be removed with a high-speed noelle to reshape the hip joint and restore normal anatomy. Risks include infection, bleeding, injury to nearby nerves or vessels, stiffness, persistent pain, instability, venous thromboembolic disease, and traction related complications including temporary foot numbness. Rarely, revision surgery may be required to address these problems. Overall recovery takes approximately 4~~ 8~months depending on the extent of damage and degree of repair. In the event that the labral tissue quality is inadequate for successful repair and healing, Robyn~understands that a labral reconstruction will be performed. This procedure entails placing a cadaver tissue graft within the hip joint and stabilizing it with bone anchors to build a new labrum. The overall recovery time for labral reconstruction is similar to that of labral repair, although the surgical procedure takes longer to perform. I reviewed the technical aspects of periacetabular osteotomy (RYLIE) including risks, benefits, and expected course of recovery. Robyn~understands that RYLIE is an inpatient procedure carried out through two medium sized incisions on the front and back of the hip joint. The hip socket is cut, realigned, and stabilized with 2 ~3 internal screws. Risks include infection, bleeding, injury to nearby nerves or vessels, stiffness, persistent pain, instability, failure of bony healing, implant related complications, and venous thromboembolic disease. Rarely, revision surgery may be required to address these problems. Risks, potential complications, side effects and recovery from surgical procedure were discussed in length. We explained how this surgery is an open procedure, and though patients tend to do well in the long-term, it involves significant pain in the first 2-4 weeks post-op and a rather lengthy rehab.~Overall recovery takes approximately 6 ~12~months depending on the extent of damage and degree of repair. Robyn~understands that she~will undergo hip arthroscopy 1 week prior to the RYLIE to address damage inside the hip joint. Akankshaunderstands that hip arthroscopy and RYLIE are two separate procedures that are best performed one week apart, with the arthroscopy commencing first to "tighten up" any pathology evident in the hip joint (labral repair, etc.) and the RYLIE open procedure occurring 7-10 days later to realign the acetabulum. Akankshawill review the info presented. In order to obtain more detailed information regarding the alignment, orientation, and shape of the bony hip and pelvis I will order a CT scan to be performed. The results of the CT scan, including femoral torsion and acetabular version measured values and 3D images, will aid me in deciding on the best treatment strategy and surgical pre-planning. In order to evaluate the integrity of the surface cartilage within the hip joint , I will order a delayed gadolinium enhanced MRI of cartilage (dGEMRIC). This study will determine whetherBenitezis a good candidate for hip preservation surgery. Akankshawill talk with our surgical technician about possible surgery dates. Akankshais happy with this plan. I have also supplied her~with handouts, outlining the expected surgical treatment and rehab involved. I wishBenitezall the best, ~~ Sunny Ren MD History Information - Allergies/Home Medication List Allergies/Adverse Reactions: No Known Allergies Allergy (Verified 12/19/16 11:09) Home Medications: Ferrous Sulfate [Slow Fe 140 MG (*)] 140 mg PO DAILY 12/06/16 [Last Taken ] Loratadine [Claritin 10 mg] 10 mg PO DAILY PRN 12/06/16 [Last Taken 11/27/16] Multivitamins [Multivitamin (*)] 1 each PO DAILY 12/06/16 [Last Taken Unknown] Norgestimate-Ethinyl Estradiol [Sprintec 28 Day Tablet] 1 each PO DAILY [Last Taken Unknown] I have personally reviewed and updated: medical history - Social History Smoking Status: Never smoked
[~2017-02-03 11:10] MED LIST changes: +ACETAMINOPHEN 500 MG TAB PO ONE; -BUPIVACAINE/EPI 0.25% 30 ML SDV ONE; -MIDAZOLAM 2 MG/2 ML VIAL IVP ONE; +PREGABALIN 150 MG CAP PO ONE; +TRANEXAMIC ACID 1,000 MG in NS 100 ML IV ONE; +ceFAZolin 2 GM/DEXTROSE 100 ML IV ONE
[2017-02-03] MEDS ORDERED: SCOPOLAMINE HYDROBROMIDE 1.5 MG PATCH TD ONE (11:56)
[2017-02-03] MEDS ORDERED: PREGABALIN 150 MG CAP ONE (11:56)
[2017-02-03] MEDS ORDERED: ACETAMINOPHEN 500 MG TAB ONE (11:56)
[2017-02-03] MEDS ORDERED: CEFAZOLIN 2 GM/DEXTROSE/100 ML BAG IV ONE (11:57)
[2017-02-03] MEDS ORDERED: LR 1,000 ML IV ONE (12:16)
[2017-02-03] MEDS ORDERED: CITRATE DEXTROSE SOLN 500 ML BAG ONE (12:41)
[2017-02-03] MEDS ORDERED: MIDAZOLAM 2 MG/2 ML VIAL IVP ONE (12:44)
--- NOTE | 2017-02-03 12:46 | PDANEPAE ---
ANE History of Present Illness presents for L RYLIE ANE Past Medical History - Cardiovascular History Hx Hypertension: No Hx Arrhythmias: No Hx Chest Pain: No Hx Coronary Artery / Peripheral Vascular Disease: No Hx CHF / Valvular Disease: No Hx Palpitations: No - Pulmonary History Hx COPD: No Hx Asthma/Reactive Airway Disease: No Hx Recent Upper Respiratory Infection: No Hx Oxygen in Use at Home: No - Neurologic History Hx Cerebrovascular Accident: No Hx Seizures: No Hx Dementia: No - Endocrine History Hx Diabetes: No - Renal History Hx Renal Disorders: Yes - Liver History Hx Hepatic Disorders: No - Neurological & Psychiatric Hx Hx Neurological and Psychiatric Disorders: No - Cancer History Hx Cancer: No - Congenital Disorder History Hx Congenital Disorders: Yes - GI History Hx Gastrointestinal Disorders: No - Chronic Pain History Chronic Pain: Yes (bilateral hips) ANE Review of Systems - Exercise capacity Exercise capacity: >=4 METS ANE Patient History - Allergies Allergies/Adverse Reactions: No Known Allergies Allergy (Verified 12/19/16 11:09) - Home Medications Home Medications: Ferrous Sulfate [Slow Fe 140 MG (*)] 140 mg PO DAILY 12/06/16 [Last Taken 1 Week Ago] Loratadine [Claritin 10 mg] 10 mg PO DAILY PRN 12/06/16 [Last Taken 11/27/16] Multivitamins [Multivitamin (*)] 1 each PO DAILY 12/06/16 [Last Taken 01/06/17] Norgestimate-Ethinyl Estradiol [Sprintec 28 Day Tablet] 1 each PO DAILY [Last Taken 02/02/17 23:50] - NPO status NPO Since - Liquids (Date): 02/03/17 NPO Since - Liquids (Time): 06:00 NPO Since - Solids (Date): 02/02/17 NPO Since - Solids (Time): 23:45 - Smoking Hx Smoking Status: Never smoked - Family Anes Hx Family Hx Anesthesia Complications: none ANE Labs/Vital Signs - Vital Signs Blood Pressure: 124/79 Heart Rate: 102 Respiratory Rate: 12 O2 Sat (%): 98 Height: 167.64 cm Weight: 68.039 kg ANE Physical Exam - Airway Neck exam: FROM Mallampati Score: Class 1 Mouth exam: normal dental/mouth exam - Pulmonary Pulmonary: no respiratory distress - Cardiovascular Cardiovascular: regular rate and rhythym - ASA Status ASA Status: I ANE Anesthesia Plan Anesthesia Plan: general endotracheal anesthesia
[2017-02-03] MEDS ORDERED: PROPOFOL/EMULSION 500 MG/50 ML BOTTLE IV ONE ×3 (12:51→15:57)
[2017-02-03] MEDS ORDERED: fentaNYL 100 MCG/2 ML INJ ONE ×6 (13:13→20:19)
[2017-02-03] MEDS ORDERED: KETAMINE 100 MG/10 ML SYR ONE (13:32)
[2017-02-03] MEDS ORDERED: epHEDrine SULFATE 10 MG/ML SYR ONE (14:08)
[2017-02-03] MEDS ORDERED: PHENYLEPHRINE HCL 100 MCG/ML SYR ONE (14:08)
[2017-02-03] MEDS ORDERED: HYDROmorphONE/DILAUDID 2 MG/ML INJ ONE (14:27)
[2017-02-03] MEDS ORDERED: DESFLURANE 240 ML BOTTLE IH ONE (17:22)
[2017-02-03] MEDS ORDERED: ONDANSETRON 4 MG/2 ML VIAL IVP PRN ×2 (18:21→19:35)
[2017-02-03] MEDS ORDERED: LR 500 ML IV PRN (18:21)
[2017-02-03] MEDS ORDERED: PROMETHAZINE HCL 25 MG/ML INJ IVP PRN (18:21)
[2017-02-03] MEDS ORDERED: NALOXONE HCL 0.4 MG/ML INJ IVP PRN ×2 (18:21→19:40)
[2017-02-03] MEDS ORDERED: PROPOFOL 200 MG/20 ML VIAL ONE (19:25)
[2017-02-03] MEDS ORDERED: MAGNESIUM HYDROXIDE 30 ML UDCUP PO PRN (19:35)
[2017-02-03] MEDS ORDERED: ONDANSETRON DISINTEGRATING 4 MG TAB PO PRN (19:35)
[2017-02-03] MEDS ORDERED: BISACODYL 10 MG SUPP PR PRN (19:35)
[2017-02-03] MEDS ORDERED: LACTULOSE 20 GM/30 ML UDCUP PO PRN (19:35)
[2017-02-03] MEDS ORDERED: NAPROXEN SODIUM 220 MG TAB PO PRN (19:38)
[2017-02-03] MEDS ORDERED: HYDROmorphONE/DILAUDID 1 MG/ML SYR IVP ONE (19:40)
--- NOTE | 2017-02-03 19:55 | SUROPNOTE ---
MEHNAZ Operative Report - Surgery Surgery was performed in [facility] 02/03/17 Diagnosis: Left 1. Hip Acetabular Dysplasia Operation: Left~Suze Acetabular Osteotomy (RYLIE) Surgeon: Obi Rios MD Neonatal Critical Care Nurse:~~Loc ZAVALA Anesthetic: General Procedure: General anesthetic. Antibiotics given. Cell saver in use. Fluoroscopy. Phase 1: Position lateral, diagonal skin incision between ischial tuberosity and greater trochanter as for posterior hip approach. Blunt split of glut max fibers. Identification of fat pad overlying sciatic nerve. Exposure of sciatic nerve under fat pad, gently retracting it away-medially to ischial tuberosity. Exposure of subcotoloid fossa proximal to short rotators. Using osteotomes and under fluoroscopy, osteotomy of subcotoloid fossa to sciatic notch proximal to ischial spine. Closure of lateral cut. Patient is turned supine. Phase 2: Skin incision just distal to ASIS. Using diathermy the iliac spine was exposed and inguinal ligament + Sartorious were retracted medially, taking the LFCN with them, protecting it. Inner ilium was dissected from iliacus muscle bluntly , with a cob and swab. Dissection continued towards lateral superior ramus pubis. Using fluoroscopy an osteotomy of lateral superior ramus, just medial to tear drop, was performed with curved fish mouth osteotome. Phase 3: Osteotomy lines of the ilium were marked with diathermy as pre planned according to XR/CT and expected correction of acatabulum. 2 Shanz screws were drilled into central acetabular fragment, corresponding with planned correction angles, in order to mobilize central acetabular fragment after osteotomy is complete. ~Iliac osteotomy was performed with reciprocating saw and the main acetabular fragment was moved to realign weight bearing position. After confirmation of correction using fluoroscopy in AP and false profile planes, the fragment was fixed with 2 - 5.5mm ~full threaded~screws~and 2 - 4mm~~full threaded~screws. Inguinal ligament and Sartorious were attached back to ASIS through drill holes. Incision was closed according to soft tissue layers. Skin was closed with subdermal Monocryl. Final fluoro shots were obtained to confirm position/correction. After surgery Robyn~moved both lower limbs and had no NV motor compromise. Evaluation under anesthesia: IR at 90 degrees hip flexion prior to RYLIE was 50 degrees before DFO, 25 today,~ and after RYLIE was 20~degrees. Bleedin~cc into cell-saver, 135~of blood products were returned to patient. Post op instructions: 1. Non~weight bearing crutches for 8~weeks 2. Epidural analgesia for 24-48 hours 3. Continuous SCD 4. Aspirin 81 mg X1 day once Epidural is discontinued 5. Avoid hip flexion past 90 and hip External rotation. 6. PT according to my recommendations at follow up visit Kind regards, Dr. Obi Rios .
[2017-02-03] MEDS ORDERED: HYDROmorphONE/DILAUDID 1 MG/ML SYR ONE (20:19)
[2017-02-03] MEDS: fentaNYL 100 MCG/2 ML INJ IVP PRN ×3 (20:22→20:53)
[2017-02-03] MEDS: HYDROmorphONE/DILAUDID 1 MG/ML SYR IVP PRN ×2 (20:29→20:44)
[2017-02-03] MEDS: SENNOSIDES/DOCUSATE SODIUM TAB PO SCH (21:43)
[2017-02-03] MEDS: ACETAMINOPHEN 325 MG TAB PO PRN (21:44)
[2017-02-03] MEDS: DIAZEPAM 2 MG TAB PO PRN (21:44)
[2017-02-03] MEDS: oxyCODONE IR 5 MG TAB PO PRN (21:44)
[2017-02-03] MEDS: HYDROmorphONE/DILAUDID 6 MG/30 ML PCA IV PRN (22:18)
[2017-02-04] MEDS: oxyCODONE IR 5 MG TAB PO PRN ×5 (03:16→20:20)
[2017-02-04] MEDS: ACETAMINOPHEN 325 MG TAB PO PRN ×3 (03:17→20:21)
[2017-02-04] MEDS: DIAZEPAM 2 MG TAB PO PRN ×3 (03:17→20:19)
[2017-02-04 05:03] LABS: HEMOGLOBIN 7.3 g/dL (12.6-16.3); MEAN CELL HEMOGLOBIN 31.9 pg (27.9-34.1); MEAN CELL HEMOGLOBIN CONCENTR. 33.2 g/dL (32.4-36.7); MEAN CELL VOLUME 96.1 fL (81.5-99.8); RED BLOOD CELL COUNT 2.29 10^6/uL (4.18-5.33); RED CELL DISTRIBUTION WIDTH 12.8 % (11.5-15.2)
[2017-02-04 05:31] LABS: CALCIUM 8.8 mg/dL (8.5-10.4); CARBON DIOXIDE 25 mEq/l (22-31); CHLORIDE 104 mEq/L (97-110); CREATININE 0.7 mg/dL (0.6-1.0); GLOMERULAR FILTRATION RATE > 60; GLUCOSE 109 mg/dL (70-100); SODIUM 135 mEq/L (134-144)
[2017-02-04 05:38] LABS: ANION GAP 6 mEq/L (8-16); POTASSIUM 4.3 mEq/L (3.5-5.2)
[2017-02-04] MEDS: FERROUS SULFATE 140 MG TAB.ER PO SCH (07:44)
[2017-02-04] MEDS: SENNOSIDES/DOCUSATE SODIUM TAB PO SCH ×2 (07:45→20:19)
[2017-02-04] MEDS: POLYETHYLENE GLYCOL 3350 17 GM PKT PO PRN (08:18)
[2017-02-04] MEDS ORDERED: CETIRIZINE 10 MG TAB PO PRN (09:00)
[2017-02-04] MEDS: Norgestimate-Ethinyl Estradiol [Sprintec 28 Day Tablet] PO SCH (12:11)
[2017-02-04] MEDS: HYDROmorphONE/DILAUDID 6 MG/30 ML PCA IV PRN (18:43)
--- NOTE | 2017-02-04 21:02 | SOAPPROG ---
SOAP Progress Note Assessment/Plan: Assessment: 1 day post op Left Periacetabular Osteotomy Plan: Wean down and off PROJ MGR Change oral analgesic from Oxycodone to Dilaudid Pelvis Xray in 2 days 02/04/17 20:59 Subjective: Robyn is doing quite well today. She has been ambulating with crutches (non- weight bearing) in the hallways and getting up to the bathroom. Her pain has been managed with the PROJ MGR and Oxycodone but says the former is not lasting 4hrs for pain relief. She denies any cp, sob or nausea. Objective: Vital Signs Temp Pulse Resp BP Pulse Ox 37.1 C 132 H 16 115/75 97 02/04/17 20:00 02/04/17 20:00 02/04/17 20:00 02/04/17 20:00 02/04/17 20:00 Laboratory Results 02/04/17 04:15 02/04/17 04:15 02/03/17 02/04/17 02/05/17 05:59 05:59 05:59 Intake Total 4265 Output Total 4700 2350 Balance -435 -2350 Well appearing in NAD Left hip: wide spread ecchymosis (mostly from last weeks DFO) edema dressings clean dry intact NVI distally Full ROM of foot and ankle - Pending Discharge Pending Discharge Within 48 Hours: Yes Pending Discharge Date: 02/06/17 Pending Discharge Time: 11:00 ICD10 Worksheet Patient Problems: Problems Problem Status Onset Post-op pain Acute
[2017-02-05] MEDS: oxyCODONE IR 5 MG TAB PO PRN (02:35)
[2017-02-05] MEDS: DIAZEPAM 2 MG TAB PO PRN ×3 (02:36→17:57)
[2017-02-05] MEDS: HYDROmorphONE/DILAUDID 4 MG TAB PO PRN ×5 (03:54→20:19)
[2017-02-05] MEDS: ACETAMINOPHEN 325 MG TAB PO PRN (03:54)
[2017-02-05] MEDS: FERROUS SULFATE 140 MG TAB.ER PO SCH (08:21)
[2017-02-05] MEDS: SENNOSIDES/DOCUSATE SODIUM TAB PO SCH ×2 (08:21→20:19)
[2017-02-05] MEDS: Norgestimate-Ethinyl Estradiol [Sprintec 28 Day Tablet] PO SCH (08:25)
[2017-02-05] MEDS: ASPIRIN EC 81 MG TAB PO SCH (20:19)
--- NOTE | 2017-02-05 21:26 | SOAPPROG ---
SOAP Progress Note Assessment/Plan: Assessment: Plan: 02/05/17 21:24 POD 2, doing very well w/o epidural. NV intact although some upper toes tingling, minimal. Passed gas and stool but has a bit of abdominal distention, none painful. Will do XR tomorrow and if good on track to be discharged. Dr Rios Objective: Vital Signs Temp Pulse Resp BP Pulse Ox 36.6 C 128 H 16 118/79 94 02/05/17 15:36 02/05/17 15:36 02/05/17 15:36 02/05/17 15:36 02/05/17 15:36 Laboratory Results 02/04/17 04:15 02/04/17 04:15 02/04/17 02/05/17 02/06/17 05:59 05:59 05:59 Intake Total 4265 1200 2500 Output Total 6334 9128 Lvuxlly -346 -8584 2500 ICD10 Worksheet Patient Problems: Problems Problem Status Onset Post-op pain Acute
[2017-02-06] MEDS: DIAZEPAM 2 MG TAB PO PRN ×3 (00:05→16:46)
[2017-02-06] MEDS: HYDROmorphONE/DILAUDID 4 MG TAB PO PRN ×6 (00:05→21:03)
[2017-02-06] MEDS: FERROUS SULFATE 140 MG TAB.ER PO SCH (08:33)
[2017-02-06] MEDS: Norgestimate-Ethinyl Estradiol [Sprintec 28 Day Tablet] PO SCH (08:34)
[2017-02-06] MEDS: ASPIRIN EC 81 MG TAB PO SCH (08:34)
[2017-02-06] MEDS: SENNOSIDES/DOCUSATE SODIUM TAB PO SCH ×2 (08:34→19:29)
[2017-02-06 09:38] LABS: HEMATOCRIT 23.3 % (38.0-47.0); HEMOGLOBIN 7.6 g/dL (12.6-16.3)
[2017-02-06] MEDS ORDERED: NS BOLUS 500 ML (Wide open) IV ONE (10:30)
[2017-02-06] MEDS: POLYETHYLENE GLYCOL 3350 17 GM PKT PO PRN (20:05)
--- NOTE | 2017-02-06 21:59 | SOAPPROG ---
SOAP Progress Note Assessment/Plan: Assessment: 3rd day post op Left Periacetabular Osteotomy Tachycardia; low but expected H/H Plan: monitor bp; hold off transfusion unless symptomatic oral dilaudid DC home likely tomorrow 02/04/17 20:59 02/06/17 21:56 02/06/17 22:00 Subjective: Robyn continues to do well. She has been tachyacardic today and yesterday into the 120s. H/H drawn this am, coming up slowly but still 7-8/-23. She denies any symptoms, not sob, no syncopal or dizziness either in bed or up ambulating. She denies any cp or nausea. Dilaudid is working better for analgesia than the Oxycodone. Objective: Vital Signs Temp Pulse Resp BP Pulse Ox 36.7 C 119 H 16 108/78 99 02/06/17 19:27 02/06/17 19:27 02/06/17 19:27 02/06/17 19:27 02/06/17 19:27 Laboratory Results 02/06/17 09:23 02/04/17 04:15 02/05/17 02/06/17 02/07/17 05:59 05:59 05:59 Intake Total 1200 3850 3140 Output Total 3950 1400 Balance -2750 2450 3140 Well appearing in NAD Left Hip: ecchymosis is diminishing edema dressings clean dry intact NVI distally Full ROM of foot and ankle - Pending Discharge Pending Discharge Within 24 Hours: Yes Pending Discharge Date: 02/07/17 Pending Discharge Time: 11:00 ICD10 Worksheet Patient Problems: Problems Problem Status Onset Post-op pain Acute
[2017-02-07] MEDS: HYDROmorphONE/DILAUDID 4 MG TAB PO PRN ×4 (01:06→13:21)
[2017-02-07 04:49] VITALS: RESP 16
[2017-02-07 07:46] VITALS: BP 99/69; PULSE 102; TEMP 98; O2SAT 100
[2017-02-07] MEDS: FERROUS SULFATE 140 MG TAB.ER PO SCH (09:18)
[2017-02-07] MEDS: ASPIRIN EC 81 MG TAB PO SCH (09:18)
[2017-02-07] MEDS: Norgestimate-Ethinyl Estradiol [Sprintec 28 Day Tablet] PO SCH (09:19)
[2017-02-07] MEDS: SENNOSIDES/DOCUSATE SODIUM TAB PO SCH (09:19)
[2017-02-07] MEDS: DIAZEPAM 2 MG TAB PO PRN (13:21)
== END 2017-02-07 14:19 | disposition home or self-care (01) | DRG 482 ==
LOC: F3N 11:10
PROVIDERS: ADMIT Orthopaedic Surgery Sports Medicine; ATTEND Orthopaedic Surgery Sports Medicine
DX: Q65.89 Other specified congenital deformities of hip (principal)
CPT/HCPCS: 97116-GP; 97161-GP; 97166-GO; 97530-GP; 97535-GO; C1713; J0690; J1170; J2250; J2370; J2704; J3010; J7060

== ENCOUNTER 2017-07-28 05:28 | Day surgery (SDC) | payer OTHER ==
[~2017-07-28 05:28] MED LIST changes: -ACETAMINOPHEN 500 MG TAB PO ONE; +NS BOLUS 500 ML (Wide open) IV ONE; -PREGABALIN 150 MG CAP PO ONE; -SCOPOLAMINE HYDROBROMIDE 1.5 MG PATCH TD ONE; -TRANEXAMIC ACID 1,000 MG in NS 100 ML IV ONE; -ceFAZolin 2 GM/DEXTROSE 100 ML IV ONE
[2017-07-28] MEDS ORDERED: LR 1,000 ML IV ONE (06:13)
[2017-07-28] MEDS: LIDOCAINE 1% 2 ML INJ ID PRN ×2 (06:26→07:14)
[2017-07-28] MEDS ORDERED: ceFAZolin 2 GM/SWFI 2 GM/20 ML SYR IVP ONE (06:37)
[2017-07-28] MEDS ORDERED: PREGABALIN 150 MG CAP PO ONE (06:37)
[2017-07-28] MEDS ORDERED: ACETAMINOPHEN 500 MG TAB PO ONE (06:37)
--- NOTE | 2017-07-28 06:37 | PDGENHP ---
History and Physical - Chief Complaint LEFT HIP PAIN - History of Present Illness HISTORY OF PRESENT ILLNESS: Akankshais a 26 y.o.~~~active female~who I have had the pleasure to consult on today. I have enjoyed meeting her. She~lives in [place], [place]. 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 ~She~is ; she~has 3~children. ~Akanksha enjoys running, walking, hiking and working out but not active now. Robyn's left~hip pain started in January~2012, with no~recalled trauma or injury, and with no~previous complaints. Akankshadoes not have~a known history of hip dysplasia. Presentation today is of anterior, groin left~hip pain. ~The hip does~wake her~ at night and does~click and catch on her. Sitting can be uncomfortable~for her. Akankshadoes~report suffering from lower back pain episodes and she has scoliosis. Akankshahas~participated in physical therapy for 1.5 years~and has not~tried other conservative measures including hip injections . She~has not~received sufficient symptomatic improvement. Akankshahas~utilized medication for pain management, including NSAID and OTC acetaminophen. Akankshahas used medication for 3 years. Akankshahas occasional clicking on the right. Akankshaunderstands that she~has a hip and pelvis problem which should be researched and wishes to get a better understanding of her~hip status, followed by an establishment of a treatment strategy, hoping sheZoranwould be able to get back to her~well being active life. History: Past medical history: ~ None which is relevant Relevant familial history: None which is relevant Past surgical history: Bladder Surgery in 1999 Akankshadenies problematic issues with general anesthesia in the past. I have reviewed, verified and agree with the past medical, surgical, family and social history. Current Medications:Zoranhas a current medication list which includes the following prescription(s): ibuprofen and norgestimate-ethinyl estradiol. ALLERGIES:Zoranhas No Known Allergies. Objective: Physical Examination: Akankshais 5~feet 6~inches tall and weighs 155~Lbs. Akankshais AAO x3; she~is well -nourished, in NAD. Skin is warm and dry. ~Breathing is non-labored. ~CV with RRR by pulse. Abdomen is soft, NTND. Currently, she~walks with a normal~gait. Trendelenburg sign is negative~and proprioception is reduced, both~sides. She~presents with moderate~signs of joint laxity. Beightons Score: 5 She~is fit looking. ~~ Lower spine examination is negative~for sciatic or femoral nerve irritation with negative~SLR &~femoral stretch tests. Range of motion of the spine is normal~for flexion, extension, and rotations, with no~associated pain. Strength, Sensation and pulses are normal - bilaterally Ankles and knees exams are normal~and no~mal-alignment is evident. She~has no leg length discrepancy. Thigh circumference is symmetric~with no evidence for muscle atrophy~on both~ sides. Hip ROM (degrees): FL ER At 90~hip FL IR At 90~hip FL AB AD EX IR Neutral hip ER Neutral hip R 115 75 35 40 15 10 55 50 L 110P 45 50 45 5 10 70 30 (Pain inhibition) Specific hip and pelvis tests: Quadrant ARCHIE Roll Add. Longus R + + Negative Negative L +++ +++ Negative +++ Glut. Med ITB Pos. Imp R Negative 5/5 strength Negative 5/5 strength Negative L Negative 5/5 strength Negative 5/5 strength Negative Squeeze test measured normal Bony Symphysis pubis is pain free~to touch while concentric activity of the rectus abdominis, does not~produce pain at its insertion. Ilio Psos specific tests are negative for pain during cycling for both hips~and remarkable for no snap. HF has good strength, non-painful both hips. Anterior~capsule tenderness on the left. Greater trochanteric burse is pain free~on both hips. Piriformis tests: FAIR is negative, with no~local signs of neuritis related to sciatic nerve. SIJs examination is produces pain on left side~with normal~ARCHIE in relation and local tenderness. Hamstrings tests are negative~functional contraction and positive~tendinopathy the left hip~at insertion. On a daily basis, the following percentages reflect Robyn's overall total pain: Deep hip: 90% Left SIJ: 10% Imaging: Radiology studies which I have personally reviewed, analyzed and measured are below: XR: AP of the hip and pelvis: Performed in a good~technique Coccyx to pubic symphysis distance 3.3~cm. Upright. Zero degrees. [place] Lines are interrupted on the left.~~~~~~~~~~~~~ No~Pathological signs are seen in the Symphysis Pubis. No~Pathological signs are seen at the Ischial tuberosity. ~ Specific measurements show: NSA~ LCE Sourcil~Angle Sharp's angle Lat. Cam Lat. Pincer C.Over~sign Head~Coverage % ATDmm R 141 10 16 47 + - - 51 N L 134 -8 27 56 + - - 46 N Pos. wall sign ISS NAD ~~Dysplasia Comments R Negative Negative 26.2~mm +++ L Negative Negative 25.7~mm +++ Sclerosis Sup. Lat. OA Cysts Joint Space-WBZ Joint Space-Medial R + Negative Negative 7.5~mm 5.4~mm L + Negative Negative 7.5~mm 7.9~mm X Table lateral: Anterior cam lesion is seen~on both hips. Alpha Angle: ~ Right 71~degrees Left 67~degrees CT MEASUREMENTS: Right hip: Lateral center edge angle: 11 degrees Equatorial acetabular version angle: 29 degrees anteverted. Cranial acetabular version angle: 19 degrees anteverted. Femoral neck shaft angle: 140 degrees. Right femoral torsion measures 19 degrees. Left hip: Lateral center edge angle: 5 degrees Equatorial acetabular version angle: 27 degrees anteverted. Cranial acetabular version angle: 13 degrees anteverted. Femoral neck shaft angle: 141 degrees Left femoral torsion measures 48 degrees. 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 She has similar radiographic features on the right side. Physical examination, imaging, and her~story correspond with the diagnosis mentioned above. I explained that hip dysplasia is a condition wherein the hip joint has excessive play~and instability due to a variety of factors, including the depth and adequacy of the socket, the orientation of the femur bone, and ligament laxity around the hip joint. Dysplasia ranges in severity from borderline to oleg, with treatment options being specific to the specific nature of the problem. Left untreated, the instability in the hip joint can cause progressive tearing of the labrum and deterioration of the surface cartilage, ultimately resulting in progressive osteoarthritis of the hip. I explained that femoroacetabular impingement (RONAK - Cam type) arises due to a bony or soft tissue conflict between the femur (ball) and acetabulum (socket) caused by an abnormality in the shape of the femoral head and neck. Over time, repetitive impingement can result in damage to the labrum and adjacent surface cartilage within the socket, ultimately giving rise to progressive osteoarthritis of the hip. I explained that although a labral tear can be a source of pain, it is rarely the root of the problem and typically occurs secondary to an underlying abnormality in the shape and mechanics of the hip joint. I reviewed conservative treatment options for Dysplasia and RONAK including activity modification to avoid positions of impingement or instability, physical therapy, non-steroidal anti-inflammatory medications, and various injections (corticosteroid and PRP) aimed at reducing inflammation in the hip joint or/and preventing dynamic instability and impingement. PRP injections may promote healing and reduce symptoms in certain cases but it will not repair chronically damaged tissue. Although these measures may help to buy time~and reduce current level of symptoms, they are not a definitive solution to the problem given the underlying abnormality in the shape of the hip joint. Patients who have failed conservative management and continue to experience symptoms are candidates for definitive surgical treatment, which may consist of hip arthroscopy alone or in combination with more invasive bony realignment procedures of the hip socket and/or femur called periacetabular osteotomy (RYLIE) or derotational femoral osteotomy (DFO). Hip arthroscopy typically includes treating the labrum with either repair or reconstruction of the torn labrum; as well as addressing the underlying abnormalities by restoring the normal shape to the hip joint. If the cartilage is damaged a Microfracture surgical procedure may also be necessary to help stimulate the growth of fibrocartilage. If a patient requires a labral reconstruction or a Microfracture, the initial rehabilitation from the surgery may take longer, but the mcc results are typically favorable. I reviewed the technical aspects of hip arthroscopy including risks, benefits, and expected course of recovery. Robyn~understands that hip arthroscopy is a minimally invasive outpatient procedure carried out through small incisions on the outer aspect of the hip joint. During surgery, the labral tear will be identified and either repaired or reconstructed~using bone anchors and suture material. Additionally, any excessive bone will be removed with a high-speed noelle to reshape the hip joint and restore normal anatomy. Risks include infection, bleeding, injury to nearby nerves or vessels, stiffness, persistent pain, instability, venous thromboembolic disease, and traction related complications including temporary foot numbness. Rarely, revision surgery may be required to address these problems. Overall recovery takes approximately 4~ 8~months depending on the extent of damage and degree of repair. In the event that the labral tissue quality is inadequate for successful repair and healing, Robyn~understands that a labral reconstruction will be performed. This procedure entails placing a cadaver tissue graft within the hip joint and stabilizing it with bone anchors to build a new labrum. The overall recovery time for labral reconstruction is similar to that of labral repair, although the surgical procedure takes longer to perform. I reviewed the technical aspects of periacetabular osteotomy (RYLIE) including risks, benefits, and expected course of recovery. Akankshaunderstands that RYLIE is an inpatient procedure carried out through two medium sized incisions on the front and back of the hip joint. The hip socket is cut, realigned, and stabilized with 2 3 internal screws. Risks include infection, bleeding, injury to nearby nerves or vessels, stiffness, persistent pain, instability, failure of bony healing, implant related complications, and venous thromboembolic disease. Rarely, revision surgery may be required to address these problems. Risks, potential complications, side effects and recovery from surgical procedure were discussed in length. We explained how this surgery is an open procedure, and though patients tend to do well in the long-term, it involves significant pain in the first 2-4 weeks post-op and a rather lengthy rehab.~Overall recovery takes approximately 6 12~months depending on the extent of damage and degree of repair. Akankshaunderstands that she~will undergo hip arthroscopy 1 week prior to the RYLIE to address damage inside the hip joint. Robyn~understands that hip arthroscopy and RYLIE are two separate procedures that are best performed one week apart, with the arthroscopy commencing first to "tighten up" any pathology evident in the hip joint (labral repair, etc.) and the RYLIE open procedure occurring 7-10 days later to realign the acetabulum. Robyn~will review the info presented. In order to obtain more detailed information regarding the alignment, orientation, and shape of the bony hip and pelvis I will order a CT scan to be performed. The results of the CT scan, including femoral torsion and acetabular version measured values and 3D images, will aid me in deciding on the best treatment strategy and surgical pre-planning. In order to evaluate the integrity of the surface cartilage within the hip joint , I will order a delayed gadolinium enhanced MRI of cartilage (dGEMRIC). This study will determine whetherBenitezis a good candidate for hip preservation surgery. Akankshawill talk with our scraper tender about possible surgery dates. Akankshais happy with this plan. I have also supplied her~with handouts, outlining the expected surgical treatment and rehab involved. I wishBenitezall the best, ~~ History Information - Allergies/Home Medication List Allergies/Adverse Reactions: No Known Allergies Allergy (Verified 12/19/16 11:09) Home Medications: Norgestimate-Ethinyl Estradiol [Sprintec 28 Day Tablet] 1 each PO DAILY [Last Taken 07/27/17] Ibuprofen [Motrin (*)] 200 mg PO DAILY PRN 06/19/17 [Last Taken Unknown] I have personally reviewed and updated: medical history - Social History Smoking Status: Never smoked Review of Systems Review of Systems: Physical Exam Physical Exam: Temp Pulse Resp BP Pulse Ox 36.6 C 71 18 111/71 98 07/28/17 06:29 07/28/17 06:29 07/28/17 06:29 07/28/17 06:29 07/28/17 06:29
[2017-07-28] MEDS ORDERED: LIDOCAINE 1% 300 MG/30 ML SDV ONE (06:45)
[2017-07-28] MEDS ORDERED: MIDAZOLAM 2 MG/2 ML VIAL ONE ×2 (07:02→07:08)
[2017-07-28] MEDS ORDERED: PROPOFOL 200 MG/20 ML VIAL ONE (07:03)
[2017-07-28] MEDS ORDERED: LIDOCAINE 2% 5 ML SDV ONE (07:08)
--- NOTE | 2017-07-28 07:36 | PDANEPAE ---
ANE History of Present Illness Hardware Left Hip ANE Past Medical History - Cardiovascular History Hx Hypertension: No Hx Arrhythmias: No Hx Chest Pain: No Hx Coronary Artery / Peripheral Vascular Disease: No Hx CHF / Valvular Disease: No Hx Palpitations: No - Pulmonary History Hx COPD: No Hx Asthma/Reactive Airway Disease: No Hx Recent Upper Respiratory Infection: No Hx Oxygen in Use at Home: No Hx Sleep Apnea: No Sleep Apnea Screening Result - Last Documented: Negative - Neurologic History Hx Cerebrovascular Accident: No Hx Seizures: No Hx Dementia: No - Endocrine History Hx Diabetes: No - Renal History Hx Renal Disorders: Yes Renal History Comment: hx of chronic uti's. bladder surgery at 9 yo - Liver History Hx Hepatic Disorders: No - Neurological & Psychiatric Hx Hx Neurological and Psychiatric Disorders: No - Cancer History Hx Cancer: No - Congenital Disorder History Hx Congenital Disorders: Yes Congenital History Comment: bilater hip issues - GI History Hx Gastrointestinal Disorders: No - Other Health History Other Health History: anemic. wears glasses - Chronic Pain History Chronic Pain: Yes (bilateral hips) - Surgical History Prior Surgeries: 01/27/17 left hip scope with Rekha-Memo. Bladder surgery @ 9 yo ANE Review of Systems Review of Systems: - Exercise capacity METS (RN): 5 METS ANE Patient History - Allergies Allergies/Adverse Reactions: No Known Allergies Allergy (Verified 12/19/16 11:09) - Home Medications Home Medications: Norgestimate-Ethinyl Estradiol [Sprintec 28 Day Tablet] 1 each PO DAILY [Last Taken 07/27/17] Ibuprofen [Motrin (*)] 200 mg PO DAILY PRN 06/19/17 [Last Taken Unknown] - NPO status NPO Since - Liquids (Date): 07/28/17 NPO Since - Liquids (Time): 03:30 NPO Since - Solids (Date): 07/27/17 NPO Since - Solids (Time): 19:00 - Smoking Hx Smoking Status: Never smoked - Family Anes Hx Family Hx Anesthesia Complications: none ANE Labs/Vital Signs - Vital Signs Blood Pressure: 111/71 Heart Rate: 71 Respiratory Rate: 18 O2 Sat (%): 98 Height: 167.64 cm Weight: 68.039 kg ANE Anesthesia Plan Anesthesia Plan: MAC
[2017-07-28] MEDS ORDERED: PROPOFOL/EMULSION 500 MG/50 ML BOTTLE IV ONE (07:39)
--- NOTE | 2017-07-28 08:09 | POSTANESTH ---
Post Anesthetic Evaluation Respiratory Status: Normal, Stable Level of Consciousness/Mental Status: Can Participate in Eval, Alert and Oriented, Unconscious Pain Control: Adequate, Prn Tx Ordered Nausea/Vomiting Control: Adequate, Prn Tx Ordered Complications Possibly Related to Anesthesia: None Noted
[2017-07-28] MEDS ORDERED: NALOXONE HCL 0.4 MG/ML INJ IVP PRN (08:12)
[2017-07-28] MEDS ORDERED: fentaNYL 100 MCG/2 ML INJ IVP PRN (08:12)
[2017-07-28] MEDS ORDERED: HYDROmorphONE/DILAUDID 1 MG/ML INJ IVP PRN (08:12)
[2017-07-28] MEDS ORDERED: DEXAMETHASONE 4 MG/ML VIAL IVP PRN (08:12)
[2017-07-28] MEDS ORDERED: ONDANSETRON 4 MG/2 ML VIAL IVP PRN (08:12)
[2017-07-28] MEDS ORDERED: HYDROGEN PEROXIDE 236 ML BOTTLE TP ONE (08:28)
[2017-07-28 10:16] VITALS: TEMP 97.3
[2017-07-28 10:25] VITALS: PULSE 80
[2017-07-28 10:26] VITALS: BP 106/75; RESP 16; O2SAT 95
== END 2017-07-28 10:25 | disposition home or self-care (01) ==
LOC: FSGY 05:28 → EDSTATUS 07:15 → FSGY 10:25
PROVIDERS: ATTEND Orthopaedic Surgery Sports Medicine
PROC: 0QP304Z Removal of Internal Fixation Device from Left Pelvic Bone, Open Approach (ICD-10-PCS; principal; 2017-07-28 07:15)
DX: T84.84XA Pain due to internal orthopedic prosthetic devices, implants and grafts, initial encounter (principal)
CPT/HCPCS: J0690; J2250; J2704

== ENCOUNTER 2018-06-08 11:02 | Day surgery (SDC) | payer OTHER ==
--- NOTE | 2018-06-07 22:05 | PDGENHP ---
History and Physical - Chief Complaint RIGHT HIP PAIN/ LEFT HIP PAIN - History of Present Illness Diagnosis: 1.~Bilateral~Hip Dyplasia, 2. Bilateral Femoroacetabular impingement (RONAK) Cam type,~ 3. Left excessive femoral ante-torsion (48 degrees) 4. History of LEFT Hip Scope/DFO HISTORY OF PRESENT ILLNESS: Akankshais a 27 y.o.~~~active female~who I have had the pleasure to consult on today. 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 ~Akanksha enjoys running, walking, hiking and working out but not active now. Rashads~hip pain started in~January~2012, with~no~recalled trauma or injury, and with no~previous complaints. Akankshadoes not have~a known history of hip dysplasia. Presentation today is of~anterior,~groin~bilateral~hip pain. ~The hip~does~wake her~at night and does~click and catch on her. Sitting~can be uncomfortable~for her.~Akankshadoes~report suffering from lower back pain episodes and she has scoliosis. Akankshahas~participated in physical therapy for 1.5 years~and has not~tried other conservative measures including hip injections~.~Lillie~has not~received sufficient symptomatic improvement. Akankshahas~utilized medication for pain management, including NSAID and OTC acetaminophen.~Akankshahas used medication for 3~years. Akankshahas occasional clicking on the right. Akankshaunderstands that she~has a hip and pelvis problem which should be researched and wishes to get a better understanding of her~hip status, followed by an establishment of a treatment strategy, hoping she~would be able to get back to her~well being active life. History: Past medical history:~~ None which is relevant~ Relevant familial history:~None which is relevant~ Past surgical history:~ Bladder Surgery in 1999 Akankshadenies problematic issues with general anesthesia in the past. I have reviewed, verified and agree with the past medical, surgical, family and social history. Current Medications:~has a current medication list which includes the following prescription(s): ibuprofen and norgestimate-ethinyl estradiol. ALLERGIES:~has No Known Allergies. Objective: Physical Examination: Akankshais 5~feet 6~inches tall and weighs 155~Lbs. Akankshais AAO x3; she~is well -nourished, in NAD. Skin is warm and dry. ~Breathing is non-labored. ~CV with RRR by pulse. Abdomen is soft, NTND. Currently,~she~walks with a normal~gait. Trendelenburg sign is~negative~and proprioception is reduced,~both~sides. She~presents with moderate~signs of joint laxity. Beightons Score:~5 She~is fit looking. ~~ Lower spine examination is~negative~for sciatic or femoral nerve irritation with negative~SLR &~femoral stretch tests. Range of motion of the spine is normal~for flexion, extension, and rotations, with no~associated pain. Strength, Sensation and pulses are~normal -~bilaterally Ankles and knees exams are~normal~and no~mal-alignment is evident. She~has no leg length discrepancy. Thigh circumference is~symmetric~with no evidence for muscle atrophy~on both~ sides. Hip ROM (degrees): FL ER At 90~hip FL IR At 90~hip FL AB AD EX IR Neutral hip ER Neutral hip R 115 75 35 40 15 10 55 50 L 110P 45 50 45 5 10 70 30~(Pain inhibition) Specific hip and pelvis tests: Quadrant ARCHIE Roll Add. Longus R + + Negative Negative L +++ +++ Negative +++ Glut. Med ITB Pos. Imp R Negative 5/5 strength Negative 5/5 strength Negative L Negative 5/5 strength Negative 5/5 strength Negative Squeeze test measured~normal Bony Symphysis pubis is~pain free~to touch while concentric activity of the rectus abdominis, does not~produce pain at its insertion. Ilio Psos specific tests are~negative for pain during cycling for~both hips~and remarkable for no snap. HF has~good strength, non-painful~both hips. Anterior~capsule tenderness on the left. Greater trochanteric burse is~pain free~on both hips. Piriformis tests: FAIR is~negative,~with no~local signs of neuritis related to sciatic nerve. SIJs examination is~produces pain on~left side~with normal~ARCHIE in relation and local tenderness. Hamstrings tests are~negative~functional contraction and positive~tendinopathy the left hip~at insertion. On a daily basis, the following percentages reflectErica's overall total pain: Deep hip:~90% Left SIJ:~10% Imaging: Radiology studies which I have personally reviewed, analyzed and measured are below: XR: AP of the hip and pelvis: Performed in a~good~technique Coccyx to pubic symphysis distance~3.3~cm. Upright. Zero degrees. [place] Lines are~interrupted~on the left.~~~~~~~~~~~~~ No~Pathological signs are seen in the Symphysis Pubis. No~Pathological signs are seen at the Ischial tuberosity. ~ Specific measurements show: NSA~ LCE Sourcil~Angle Sharp's angle Lat. Cam Lat. Pincer C.Over~sign Head~Coverage % ATDmm R 141 10 16 47 + - - 51 N L 134 -8 27 56 + - - 46 N Pos. wall sign ISS NAD ~~Dysplasia Comments R Negative Negative 26.2~mm +++ L Negative Negative 25.7~mm +++ Sclerosis Sup. Lat. OA Cysts Joint Space-WBZ Joint Space-Medial R + Negative Negative 7.5~mm 5.4~mm L + Negative Negative 7.5~mm 7.9~mm X Table lateral: Anterior cam lesion is~seen~on both hips. Alpha Angle: ~ Right~71~degrees Left~67~degrees CT~MEASUREMENTS: Right hip: Lateral center edge angle: 11 degrees Equatorial acetabular version angle: 29 degrees anteverted. Cranial acetabular version angle: 19 degrees anteverted. Femoral neck shaft angle: 140 degrees. Right femoral torsion measures 19 degrees. Left hip: Lateral center edge angle: 5 degrees Equatorial acetabular version angle: 27 degrees anteverted. Cranial acetabular version angle: 13 degrees anteverted. Femoral neck shaft angle: 141 degrees Left femoral torsion measures 48 degrees. Impression and plan:Zoran Valeis a 27 y.o.~active female~suffering from symptomatic bilateral~hip pain due to Hip Dyplasia~with symptomatic~labral tear and~Femoroacetabular impingement (RONAK) Cam type,~causing significant disability to her~and altering her~sport and life activities. She has similar radiographic features on the right side. Physical examination, imaging, and~her~story correspond with the diagnosis mentioned above. I explained that hip dysplasia is a condition wherein the hip joint has excessive play~and instability due to a variety of factors, including the depth and adequacy of the socket, the orientation of the femur bone, and ligament laxity around the hip joint. Dysplasia ranges in severity from borderline to oleg, with treatment options being specific to the specific nature of the problem. Left untreated, the instability in the hip joint can cause progressive tearing of the labrum and deterioration of the surface cartilage, ultimately resulting in progressive osteoarthritis of the hip. I explained that femoroacetabular impingement (RONAK - Cam type) arises due to a bony or soft tissue conflict between the femur (ball) and acetabulum (socket) caused by an abnormality in the shape of the femoral head and neck. Over time, repetitive impingement can result in damage to the labrum and adjacent surface cartilage within the socket, ultimately giving rise to progressive osteoarthritis of the hip. I explained that although a labral tear can be a source of pain, it is rarely the root of the problem and typically occurs secondary to an underlying abnormality in the shape and mechanics of the hip joint. I reviewed conservative treatment options for Dysplasia and RONAK including activity modification to avoid positions of impingement or instability, physical therapy, non-steroidal anti-inflammatory medications, and various injections (corticosteroid and PRP) aimed at reducing inflammation in the hip joint or/and preventing dynamic instability and impingement. PRP injections may promote healing and reduce symptoms in certain cases but it will not repair chronically damaged tissue. Although these measures may help to buy time~and reduce current level of symptoms, they are not a definitive solution to the problem given the underlying abnormality in the shape of the hip joint. Patients who have failed conservative management and continue to experience symptoms are candidates for definitive surgical treatment, which may consist of hip arthroscopy alone or in combination with more invasive bony realignment procedures of the hip socket and/or femur called periacetabular osteotomy (RYLIE) or derotational femoral osteotomy (DFO). Hip arthroscopy typically includes treating the labrum with either repair or reconstruction of the torn labrum; as well as addressing the underlying abnormalities by restoring the normal shape to the hip joint. If the cartilage is damaged a Microfracture surgical procedure may also be necessary to help stimulate the growth of fibrocartilage. If a patient requires a labral reconstruction or a Microfracture, the initial rehabilitation from the surgery may take longer, but the exterminator helper results are typically favorable. I reviewed the technical aspects of hip arthroscopy including risks, benefits, and expected course of recovery.~Robyn~understands that hip arthroscopy is a minimally invasive outpatient procedure carried out through small incisions on the outer aspect of the hip joint. During surgery, the labral tear will be identified and either repaired or reconstructed~using bone anchors and suture material. Additionally, any excessive bone will be removed with a high-speed noelle to reshape the hip joint and restore normal anatomy. Risks include infection, bleeding, injury to nearby nerves or vessels, stiffness, persistent pain, instability, venous thromboembolic disease, and traction related complications including temporary foot numbness. Rarely, revision surgery may be required to address these problems. Overall recovery takes approximately 4~ 8~months depending on the extent of damage and degree of repair. In the event that the labral tissue quality is inadequate for successful repair and healing,~Robyn~understands that a labral reconstruction will be performed. This procedure entails placing a cadaver tissue graft within the hip joint and stabilizing it with bone anchors to build a new labrum. The overall recovery time for labral reconstruction is similar to that of labral repair, although the surgical procedure takes longer to perform. I reviewed the technical aspects of periacetabular osteotomy (RYLIE) including risks, benefits, and expected course of recovery.~Robyn~understands that RYLIE is an inpatient procedure carried out through two medium sized incisions on the front and back of the hip joint. The hip socket is cut, realigned, and stabilized with 2 3 internal screws. Risks include infection, bleeding, injury to nearby nerves or vessels, stiffness, persistent pain, instability, failure of bony healing, implant related complications, and venous thromboembolic disease. Rarely, revision surgery may be required to address these problems. Risks, potential complications, side effects and recovery from surgical procedure were discussed in length. We explained how this surgery is an open procedure, and though patients tend to do well in the long-term, it involves significant pain in the first 2-4 weeks post-op and a rather lengthy rehab.~Overall recovery takes approximately 6 12~months depending on the extent of damage and degree of repair. Akankshaunderstands that she~will undergo hip arthroscopy 1 week prior to the RYLIE to address damage inside the hip joint. Akankshaunderstands that hip arthroscopy and RYLIE are two separate procedures that are best performed one week apart, with the arthroscopy commencing first to "tighten up" any pathology evident in the hip joint (labral repair, etc.) and the RYLIE open procedure occurring 7-10 days later to realign the acetabulum. Akankshawill review the info presented. In order to obtain more detailed information regarding the alignment, orientation, and shape of the bony hip and pelvis I will order a CT scan to be performed. The results of the CT scan, including femoral torsion and acetabular version measured values and 3D images, will aid me in deciding on the best treatment strategy and surgical pre-planning. In order to evaluate the integrity of the surface cartilage within the hip joint , I will order a delayed gadolinium enhanced MRI of cartilage (dGEMRIC). This study will determine whetherBenitezis a good candidate for hip preservation surgery. Akankshawill talk with our linen folder about possible surgery dates. Akankshais happy with this plan. I have also supplied~~with handouts, outlining the expected surgical treatment and rehab involved. I wishBenitezall the best, ~~ Sunny Ren MD History Information - Allergies/Home Medication List Allergies/Adverse Reactions: No Known Allergies Allergy (Verified 12/19/16 11:09) Home Medications: Norgestimate-Ethinyl Estradiol [Sprintec 28 Day Tablet] 1 each PO HS 12/06/16 [ Last Taken 07/27/17] Iron HS 05/26/18 [Last Taken Unknown] I have personally reviewed and updated: medical history - Social History Smoking Status: Never smoked Review of Systems Review of Systems: Physical Exam Physical Exam:
[2018-06-08] MEDS ORDERED: PREGABALIN 150 MG CAP PO ONE (11:10)
[2018-06-08] MEDS ORDERED: EPINEPHrine 30 MG/30 ML MDV (0.1 MG/0.1 ML) ONE (11:10)
[2018-06-08] MEDS ORDERED: BUPIVACAINE 0.25% 30 ML SDV ONE (11:10)
[2018-06-08] MEDS ORDERED: ACETAMINOPHEN 500 MG TAB PO ONE (11:10)
[2018-06-08] MEDS ORDERED: ceFAZolin 2 GM/DEXTROSE 100 ML IV ONE (11:10)
[2018-06-08] MEDS ORDERED: LIDOCAINE 1% 2 ML INJ ID PRN (11:12)
[2018-06-08] MEDS ORDERED: LR 1,000 ML IV ONE (11:12)
[2018-06-08] MEDS ORDERED: ROCURONIUM 50 MG/5 ML VIAL ONE (11:37)
[2018-06-08] MEDS ORDERED: LIDOCAINE 2% 2 ML INJ ONE ×2 (11:37)
[2018-06-08] MEDS ORDERED: DEXAMETHASONE 4 MG/ML VIAL ONE ×2 (11:37→13:20)
[2018-06-08] MEDS ORDERED: PROPOFOL 200 MG/20 ML VIAL ONE (11:42)
[2018-06-08] MEDS ORDERED: MIDAZOLAM 2 MG/2 ML VIAL IVP ONE (12:32)
[2018-06-08] MEDS ORDERED: SCOPOLAMINE HYDROBROMIDE 1 MG/3 DAYS PATCH TD ONE (12:33)
--- NOTE | 2018-06-08 12:38 | PDANEPAE ---
ANE Past Medical History - Cardiovascular History Hx Hypertension: No Hx Arrhythmias: No Hx Chest Pain: No Hx Coronary Artery / Peripheral Vascular Disease: No Hx CHF / Valvular Disease: No Hx Palpitations: No - Pulmonary History Hx COPD: No Hx Asthma/Reactive Airway Disease: No Hx Recent Upper Respiratory Infection: No Hx Oxygen in Use at Home: No Hx Sleep Apnea: No Sleep Apnea Screening Result - Last Documented: Negative Pulmonary History Comment: Pt with recent h/o bronchitis last week 2/2 viral illness. Completing Z-pack today. Pt symptoms almost resolved. - Neurologic History Hx Cerebrovascular Accident: No Hx Seizures: No Hx Dementia: No - Endocrine History Hx Diabetes: No Obesity: no - Renal History Hx Renal Disorders: Yes Renal History Comment: hx of chronic uti's. bladder surgery at AGE 9 - Liver History Hx Hepatic Disorders: No - Neurological & Psychiatric Hx Hx Neurological and Psychiatric Disorders: No - Cancer History Hx Cancer: No - Congenital Disorder History Hx Congenital Disorders: Yes Congenital History Comment: bilater hipS - GI History Hx Gastrointestinal Disorders: No - Other Health History Other Health History: anemic. wears glasses - Chronic Pain History Chronic Pain: Yes (RT HIP) - Surgical History Prior Surgeries: LT PERIACETABULAR OSTEOTOMY 01/2017. left hip scope 01/2017. Bladder surgery @ 9 yo ANE Review of Systems Review of Systems: - Exercise capacity METS (RN): 4 METS ANE Patient History - Allergies Allergies/Adverse Reactions: No Known Allergies Allergy (Verified 12/19/16 11:09) - Home Medications Home Medications: Norgestimate-Ethinyl Estradiol [Sprintec 28 Day Tablet] 1 each PO HS 12/06/16 [ Last Taken 06/07/18] Iron HS 05/26/18 [Last Taken 06/02/18] Zithromax 06/08/18 [Last Taken 06/07/18 12:00] - NPO status NPO Since - Liquids (Date): 06/08/18 NPO Since - Liquids (Time): 09:15 NPO Since - Solids (Date): 06/07/18 NPO Since - Solids (Time): 19:00 - Smoking Hx Smoking Status: Never smoked - Family Anes Hx Family Hx Anesthesia Complications: none ANE Labs/Vital Signs - Vital Signs Blood Pressure: 115/85 Heart Rate: 84 Respiratory Rate: 16 O2 Sat (%): 96 Height: 167.64 cm Weight: 66.678 kg ANE Physical Exam - Airway Neck exam: FROM Mallampati Score: Class 2 Mouth exam: normal dental/mouth exam, small mouth opening, abnormal chin (<2 fb TM distance) - Pulmonary Pulmonary: no respiratory distress, clear to auscultation - Cardiovascular Cardiovascular: regular rate and rhythym - ASA Status ASA Status: II ANE Anesthesia Plan Anesthesia Plan: general endotracheal anesthesia
[2018-06-08] MEDS ORDERED: fentaNYL 100 MCG/2 ML INJ ONE (12:58)
[2018-06-08] MEDS ORDERED: ONDANSETRON 4 MG/2 ML VIAL ONE (13:24)
[2018-06-08] MEDS ORDERED: METOCLOPRAMIDE 10 MG/2 ML VIAL IVP PRN (15:58)
[2018-06-08] MEDS ORDERED: ALBUTEROL 3 ML DEYVIAL IH PRN (15:58)
[2018-06-08] MEDS ORDERED: HYDROmorphONE/DILAUDID 2 MG/ML INJ IVP PRN (15:58)
[2018-06-08] MEDS ORDERED: LR 500 ML IV PRN (15:58)
[2018-06-08] MEDS ORDERED: ACETAMINOPHEN 500 MG TAB PO PRN (15:58)
[2018-06-08] MEDS ORDERED: NALOXONE HCL 0.4 MG/ML INJ IVP PRN (15:58)
[2018-06-08] MEDS ORDERED: PROMETHAZINE HCL 25 MG/ML INJ IVP PRN (15:58)
[2018-06-08] MEDS ORDERED: fentaNYL 100 MCG/2 ML INJ IVP PRN (15:58)
[2018-06-08] MEDS ORDERED: HYDROCODONE/APAP 5/325 TAB PO PRN (15:58)
[2018-06-08] MEDS ORDERED: MEPERIDINE 25 MG/0.5 ML AMP IVP PRN (15:58)
[2018-06-08] MEDS ORDERED: HYDROCODONE/APAP 5/325 TAB ONE (17:20)
[2018-06-08 18:28] VITALS: BP 114/88
--- NOTE | 2018-06-08 18:49 | POSTANESTH ---
Post Anesthetic Evaluation Cardiovascular Status: Normal, Stable Respiratory Status: Normal, Stable Level of Consciousness/Mental Status: Can Participate in Eval, Mildly Sleepy, Arousable Pain Control: Adequate, Prn Tx Ordered Nausea/Vomiting Control: Adequate, Prn Tx Ordered Complications Possibly Related to Anesthesia: None Noted
[2018-06-09] MEDS ORDERED: PATCH REMOVAL 1 EA PATCH TD ONE (12:34)
== END 2018-06-08 19:05 | disposition home or self-care (01) ==
LOC: FSGY 11:02
PROVIDERS: ATTEND Orthopaedic Surgery Sports Medicine
PROC: BQ11YZZ Fluoroscopy of Left Hip using Other Contrast (ICD-10-PCS; principal; 2018-06-08 12:30)
PROC: 0SQB4ZZ Repair Left Hip Joint, Percutaneous Endoscopic Approach (ICD-10-PCS; principal; 2018-06-08 12:30)
PROC: 0SBB4ZZ Excision of Left Hip Joint, Percutaneous Endoscopic Approach (ICD-10-PCS; principal; 2018-06-08 12:30)
PROC: 0SPB04Z Removal of Internal Fixation Device from Left Hip Joint, Open Approach (ICD-10-PCS; principal; 2018-06-08 12:30)
PROC: 0QQ54ZZ Repair Left Acetabulum, Percutaneous Endoscopic Approach (ICD-10-PCS; principal; 2018-06-08 12:30)
DX: M25.852 Other specified joint disorders, left hip (principal); Q65.89 Other specified congenital deformities of hip; T84.84XA Pain due to internal orthopedic prosthetic devices, implants and grafts, initial encounter; M65.88 Other synovitis and tenosynovitis, other site; M25.552 Pain in left hip; M41.9 Scoliosis, unspecified
CPT/HCPCS: C1713; J0171; J0690; J1100; J2250; J2405; J2704; J3010

== ENCOUNTER 2018-06-15 05:52 | Inpatient (IN) | payer OTHER ==
--- NOTE | 2018-06-14 21:54 | PDGENHP ---
History and Physical - Chief Complaint RIGHT HIP PAIN - History of Present Illness Diagnosis: 1.~Bilateral~Hip Dyplasia, RIGHT side symptomatic 2. Right~Femoroacetabular impingement (RONAK) Cam type,~ HISTORY OF PRESENT ILLNESS: Akankshais a 27 y.o.~~~active female~who I have had the pleasure to consult on today. 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 ~Akanksha enjoys running, walking, hiking and working out but not active now. Robyn's~Right~hip pain started in~January~2012, with~no~recalled trauma or injury , and with no~previous complaints. Akankshadoes not have~a known history of hip dysplasia. Presentation today is of~anterior,~groin~Right~hip pain. ~The hip~does~wake her~ at night and does~click and catch on her. Sitting~can be uncomfortable~for her.~ Akankshadoes~report suffering from lower back pain episodes and she has scoliosis. Akankshahas~participated in physical therapy for 1.5 years~and has not~tried other conservative measures including hip injections~.~Lillie~has not~received sufficient symptomatic improvement. Akankshahas~utilized medication for pain management, including NSAID and OTC acetaminophen.~Akankshahas used medication for 3~years. Akankshahas occasional clicking on the right. Akankshaunderstands that she~has a hip and pelvis problem which should be researched and wishes to get a better understanding of her~hip status, followed by an establishment of a treatment strategy, hoping she~would be able to get back to her~well being active life. History: Past medical history:~~ None which is relevant~ Relevant familial history:~None which is relevant~ Past surgical history:~ Bladder Surgery in 1999 LEFT RYLIE LEFT HIP SCOPE/DFO Akankshadenies problematic issues with general anesthesia in the past. I have reviewed, verified and agree with the past medical, surgical, family and social history. Current Medications:~has a current medication list which includes the following prescription(s): ibuprofen and norgestimate-ethinyl estradiol. ALLERGIES:~has No Known Allergies. Objective: Physical Examination: Akankshais 5~feet 6~inches tall and weighs 155~Lbs. Akankshais AAO x3; she~is well -nourished, in NAD. Skin is warm and dry. ~Breathing is non-labored. ~CV with RRR by pulse. Abdomen is soft, NTND. Currently,~she~walks with a normal~gait. Trendelenburg sign is~negative~and proprioception is reduced,~both~sides. She~presents with moderate~signs of joint laxity. Beightons Score:~5 She~is fit looking. ~~ Lower spine examination is~negative~for sciatic or femoral nerve irritation with negative~SLR &~femoral stretch tests. Range of motion of the spine is normal~for flexion, extension, and rotations, with no~associated pain. Strength, Sensation and pulses are~normal -~bilaterally Ankles and knees exams are~normal~and no~mal-alignment is evident. She~has no leg length discrepancy. Thigh circumference is~symmetric~with no evidence for muscle atrophy~on both~ sides. Hip ROM (degrees): FL ER At 90~hip FL IR At 90~hip FL AB AD EX IR Neutral hip ER Neutral hip R 115 75 35 40 15 10 55 50 L 110P 45 50 45 5 10 70 30~(Pain inhibition) Specific hip and pelvis tests: Quadrant ARCHIE Roll Add. Longus R + + Negative Negative L +++ +++ Negative +++ Glut. Med ITB Pos. Imp R Negative 5/5 strength Negative 5/5 strength Negative L Negative 5/5 strength Negative 5/5 strength Negative Squeeze test measured~normal Bony Symphysis pubis is~pain free~to touch while concentric activity of the rectus abdominis, does not~produce pain at its insertion. Ilio Psos specific tests are~negative for pain during cycling for~both hips~and remarkable for no snap. HF has~good strength, non-painful~both hips. Anterior~capsule tenderness on the left. Greater trochanteric burse is~pain free~on both hips. Piriformis tests: FAIR is~negative,~with no~local signs of neuritis related to sciatic nerve. SIJs examination is~produces pain on~left side~with normal~ARCHIE in relation and local tenderness. Hamstrings tests are~negative~functional contraction and positive~tendinopathy the left hip~at insertion. On a daily basis, the following percentages reflectErica's overall total pain: Deep hip:~90% Left SIJ:~10% Imaging: Radiology studies which I have personally reviewed, analyzed and measured are below: XR: AP of the hip and pelvis: Performed in a~good~technique Coccyx to pubic symphysis distance~3.3~cm. Upright. Zero degrees. Shenton Lines are~interrupted~on the left.~~~~~~~~~~~~~ No~Pathological signs are seen in the Symphysis Pubis. No~Pathological signs are seen at the Ischial tuberosity. ~ Specific measurements show: NSA~ LCE Sourcil~Angle Sharp's angle Lat. Cam Lat. Pincer C.Over~sign Head~Coverage % ATDmm R 141 10 16 47 + - - 51 N L 134 -8 27 56 + - - 46 N Pos. wall sign ISS NAD ~~Dysplasia Comments R Negative Negative 26.2~mm +++ L Negative Negative 25.7~mm +++ Sclerosis Sup. Lat. OA Cysts Joint Space-WBZ Joint Space-Medial R + Negative Negative 7.5~mm 5.4~mm L + Negative Negative 7.5~mm 7.9~mm X Table lateral: Anterior cam lesion is~seen~on both hips. Alpha Angle: ~ Right~71~degrees Left~67~degrees CT~MEASUREMENTS: Right hip: Lateral center edge angle: 11 degrees Equatorial acetabular version angle: 29 degrees anteverted. Cranial acetabular version angle: 19 degrees anteverted. Femoral neck shaft angle: 140 degrees. Right femoral torsion measures 19 degrees. Left hip: Lateral center edge angle: 5 degrees Equatorial acetabular version angle: 27 degrees anteverted. Cranial acetabular version angle: 13 degrees anteverted. Femoral neck shaft angle: 141 degrees Left femoral torsion measures 48 degrees. Impression and plan:Zoran Valeis a 27 y.o.~active female~suffering from symptomatic left~hip pain due to Left~Hip Dyplasia~with symptomatic~labral tear and~Femoroacetabular impingement (RONAK) Cam type,~causing significant disability to her~and altering her~sport and life activities. She has similar radiographic features on the right side. Physical examination, imaging, and~her~story correspond with the diagnosis mentioned above. I explained that hip dysplasia is a condition wherein the hip joint has excessive play~and instability due to a variety of factors, including the depth and adequacy of the socket, the orientation of the femur bone, and ligament laxity around the hip joint. Dysplasia ranges in severity from borderline to oleg, with treatment options being specific to the specific nature of the problem. Left untreated, the instability in the hip joint can cause progressive tearing of the labrum and deterioration of the surface cartilage, ultimately resulting in progressive osteoarthritis of the hip. I explained that femoroacetabular impingement (RONAK - Cam type) arises due to a bony or soft tissue conflict between the femur (ball) and acetabulum (socket) caused by an abnormality in the shape of the femoral head and neck. Over time, repetitive impingement can result in damage to the labrum and adjacent surface cartilage within the socket, ultimately giving rise to progressive osteoarthritis of the hip. I explained that although a labral tear can be a source of pain, it is rarely the root of the problem and typically occurs secondary to an underlying abnormality in the shape and mechanics of the hip joint. I reviewed conservative treatment options for Dysplasia and RONAK including activity modification to avoid positions of impingement or instability, physical therapy, non-steroidal anti-inflammatory medications, and various injections (corticosteroid and PRP) aimed at reducing inflammation in the hip joint or/and preventing dynamic instability and impingement. PRP injections may promote healing and reduce symptoms in certain cases but it will not repair chronically damaged tissue. Although these measures may help to buy time~and reduce current level of symptoms, they are not a definitive solution to the problem given the underlying abnormality in the shape of the hip joint. Patients who have failed conservative management and continue to experience symptoms are candidates for definitive surgical treatment, which may consist of hip arthroscopy alone or in combination with more invasive bony realignment procedures of the hip socket and/or femur called periacetabular osteotomy (RYLIE) or derotational femoral osteotomy (DFO). Hip arthroscopy typically includes treating the labrum with either repair or reconstruction of the torn labrum; as well as addressing the underlying abnormalities by restoring the normal shape to the hip joint. If the cartilage is damaged a Microfracture surgical procedure may also be necessary to help stimulate the growth of fibrocartilage. If a patient requires a labral reconstruction or a Microfracture, the initial rehabilitation from the surgery may take longer, but the senior care results are typically favorable. I reviewed the technical aspects of hip arthroscopy including risks, benefits, and expected course of recovery.~Robyn~understands that hip arthroscopy is a minimally invasive outpatient procedure carried out through small incisions on the outer aspect of the hip joint. During surgery, the labral tear will be identified and either repaired or reconstructed~using bone anchors and suture material. Additionally, any excessive bone will be removed with a high-speed noelle to reshape the hip joint and restore normal anatomy. Risks include infection, bleeding, injury to nearby nerves or vessels, stiffness, persistent pain, instability, venous thromboembolic disease, and traction related complications including temporary foot numbness. Rarely, revision surgery may be required to address these problems. Overall recovery takes approximately 4~ 8~months depending on the extent of damage and degree of repair. In the event that the labral tissue quality is inadequate for successful repair and healing,~Robyn~understands that a labral reconstruction will be performed. This procedure entails placing a cadaver tissue graft within the hip joint and stabilizing it with bone anchors to build a new labrum. The overall recovery time for labral reconstruction is similar to that of labral repair, although the surgical procedure takes longer to perform. I reviewed the technical aspects of periacetabular osteotomy (RYLIE) including risks, benefits, and expected course of recovery.~Robyn~understands that RYLIE is an inpatient procedure carried out through two medium sized incisions on the front and back of the hip joint. The hip socket is cut, realigned, and stabilized with 2 3 internal screws. Risks include infection, bleeding, injury to nearby nerves or vessels, stiffness, persistent pain, instability, failure of bony healing, implant related complications, and venous thromboembolic disease. Rarely, revision surgery may be required to address these problems. Risks, potential complications, side effects and recovery from surgical procedure were discussed in length. We explained how this surgery is an open procedure, and though patients tend to do well in the long-term, it involves significant pain in the first 2-4 weeks post-op and a rather lengthy rehab.~Overall recovery takes approximately 6 12~months depending on the extent of damage and degree of repair. Akankshaunderstands that she~will undergo hip arthroscopy 1 week prior to the RYLIE to address damage inside the hip joint. Akankshaunderstands that hip arthroscopy and RYLIE are two separate procedures that are best performed one week apart, with the arthroscopy commencing first to "tighten up" any pathology evident in the hip joint (labral repair, etc.) and the RYLIE open procedure occurring 7-10 days later to realign the acetabulum. Akankshawill review the info presented. In order to obtain more detailed information regarding the alignment, orientation, and shape of the bony hip and pelvis I will order a CT scan to be performed. The results of the CT scan, including femoral torsion and acetabular version measured values and 3D images, will aid me in deciding on the best treatment strategy and surgical pre-planning. In order to evaluate the integrity of the surface cartilage within the hip joint , I will order a delayed gadolinium enhanced MRI of cartilage (dGEMRIC). This study will determine whetherBenitezis a good candidate for hip preservation surgery. Akankshawill talk with our cardiovascular surgical tech about possible surgery dates. Akankshais happy with this plan. I have also supplied~~with handouts, outlining the expected surgical treatment and rehab involved. I wishBenitezall the best, ~~ Sunny Ren MD History Information - Allergies/Home Medication List Allergies/Adverse Reactions: No Known Allergies Allergy (Verified 12/19/16 11:09) Home Medications: Norgestimate-Ethinyl Estradiol [Sprintec 28 Day Tablet] 1 each PO HS 12/06/16 [ Last Taken 06/07/18] Naproxen BID 06/12/18 [Last Taken Unknown] I have personally reviewed and updated: medical history - Social History Smoking Status: Never smoked Review of Systems Review of Systems: Physical Exam Physical Exam:
--- NOTE | 2018-06-14 22:03 | PDGENHP ---
History and Physical - Chief Complaint hip pain - History of Present Illness xoxo History Information - Allergies/Home Medication List Allergies/Adverse Reactions: No Known Allergies Allergy (Verified 12/19/16 11:09) Home Medications: Norgestimate-Ethinyl Estradiol [Sprintec 28 Day Tablet] 1 each PO HS 12/06/16 [ Last Taken 06/14/18] Naproxen [Naprosyn] 500 mg PO BIDMEAL 06/12/18 [Last Taken 06/13/18] I have personally reviewed and updated: medical history - Social History Smoking Status: Never smoked Review of Systems Review of Systems: Physical Exam Physical Exam: Lab Data & Imaging Review 06/16/18 05:15 06/16/18 05:15
[2018-06-15] MEDS ORDERED: TRANEXAMIC ACID 1,000 MG in NS 100 ML IV ONE (06:07)
[2018-06-15] MEDS ORDERED: ceFAZolin 2 GM/DEXTROSE 100 ML IV ONE (06:07)
[2018-06-15] MEDS ORDERED: SCOPOLAMINE HYDROBROMIDE 1 MG/3 DAYS PATCH TD ONE (06:07)
[2018-06-15] MEDS ORDERED: ACETAMINOPHEN 500 MG TAB PO ONE (06:07)
[2018-06-15] MEDS ORDERED: PREGABALIN 150 MG CAP PO ONE (06:07)
[2018-06-15] MEDS ORDERED: LIDOCAINE 1% 2 ML INJ ID PRN (06:09)
[2018-06-15] MEDS ORDERED: LR 1,000 ML IV ONE (06:09)
[2018-06-15] MEDS ORDERED: MIDAZOLAM 2 MG/2 ML VIAL ONE (06:17)
[2018-06-15] MEDS ORDERED: fentaNYL 250 MCG/5 ML INJ ONE (06:18)
[2018-06-15] MEDS ORDERED: PROPOFOL 200 MG/20 ML VIAL ONE (06:19)
[2018-06-15] MEDS ORDERED: ONDANSETRON 4 MG/2 ML VIAL IVP PRN ×2 (06:59→12:59)
[2018-06-15] MEDS ORDERED: fentaNYL 100 MCG/2 ML INJ IVP PRN (06:59)
[2018-06-15] MEDS ORDERED: PROMETHAZINE HCL 25 MG/ML INJ IVP PRN (06:59)
[2018-06-15] MEDS ORDERED: NALOXONE HCL 0.4 MG/ML INJ IVP PRN ×2 (06:59→13:01)
[2018-06-15] MEDS ORDERED: PHENYLEPHRINE HCL 100 MCG/ML SYR IVP PRN (06:59)
[2018-06-15] MEDS ORDERED: HYDROmorphONE/DILAUDID 2 MG/ML INJ IVP PRN (06:59)
[2018-06-15] MEDS ORDERED: SCOPOLAMINE HYDROBROMIDE 1 MG/3 DAYS PATCH TD SCH (07:00)
--- NOTE | 2018-06-15 07:04 | PDANEPAE ---
ANE Past Medical History - Cardiovascular History Hx Arrhythmias: No Hx Chest Pain: No Hx Coronary Artery / Peripheral Vascular Disease: No Hx CHF / Valvular Disease: No Hx Palpitations: No - Pulmonary History Hx COPD: No Hx Asthma/Reactive Airway Disease: No Hx Recent Upper Respiratory Infection: No Hx Oxygen in Use at Home: No Hx Sleep Apnea: No Sleep Apnea Screening Result - Last Documented: Negative Pulmonary History Comment: Pt with recent h/o bronchitis last week 2/2 viral illness. Completing Z-pack today. Pt symptoms almost resolved. - Neurologic History Hx Cerebrovascular Accident: No Hx Seizures: No Hx Dementia: No - Endocrine History Hx Diabetes: No - Renal History Hx Renal Disorders: Yes Renal History Comment: hx of chronic uti's. bladder surgery at AGE 9 - Liver History Hx Hepatic Disorders: No - Neurological & Psychiatric Hx Hx Neurological and Psychiatric Disorders: No - Cancer History Hx Cancer: No - Congenital Disorder History Hx Congenital Disorders: Yes Congenital History Comment: bilater hipS - GI History Hx Gastrointestinal Disorders: No - Other Health History Other Health History: anemic. wears glasses - Chronic Pain History Chronic Pain: Yes (RT HIP) - Surgical History Prior Surgeries: RT HIP SCOPE,FEMOROPLASTY,. LABRAL REPAIR,REMVL HARDWARE. LT HIP 06/09/18. LT PERIACETABULAR OSTEOTOMY 01/2017. left hip scope 01/2017. Bladder surgery @ 9 yo ANE Review of Systems Review of Systems: - Exercise capacity METS (RN): 4 METS ANE Patient History - Allergies Allergies/Adverse Reactions: No Known Allergies Allergy (Verified 12/19/16 11:09) - Home Medications Home Medications: Norgestimate-Ethinyl Estradiol [Sprintec 28 Day Tablet] 1 each PO HS 12/06/16 [ Last Taken 06/14/18] Naproxen BID 06/12/18 [Last Taken 06/13/18] - NPO status NPO Since - Liquids (Date): 06/15/18 NPO Since - Liquids (Time): 04:00 NPO Since - Solids (Date): 06/14/18 NPO Since - Solids (Time): 18:00 - Smoking Hx Smoking Status: Never smoked - Family Anes Hx Family Hx Anesthesia Complications: none ANE Labs/Vital Signs - Vital Signs Blood Pressure: 120/90 Heart Rate: 97 Respiratory Rate: 19 O2 Sat (%): 97 Height: 167.64 cm Weight: 66.678 kg ANE Physical Exam - Airway Mallampati Score: Class 1 Mouth exam: normal dental/mouth exam - Pulmonary Pulmonary: no respiratory distress, no rales or rhonchi, clear to auscultation - Cardiovascular Cardiovascular: regular rate and rhythym, no murmur, rub, or gallop - ASA Status ASA Status: I
[2018-06-15] MEDS ORDERED: CITRATE DEXTROSE SOLN 500 ML BAG ONE (07:22)
[2018-06-15 07:23] LABS: PLATELET COUNT 177 10^3/uL (150-400)
[2018-06-15] MEDS ORDERED: TRANEXAMIC ACID 3,000 MG/50 ML BAG IRR ONE (07:34)
[2018-06-15] MEDS ORDERED: HYDROmorphONE/DILAUDID 2 MG/ML INJ ONE ×2 (09:14→14:04)
[2018-06-15] MEDS ORDERED: LIDOCAINE 2% 2 ML INJ ONE (09:24)
[2018-06-15] MEDS ORDERED: ONDANSETRON 4 MG/2 ML VIAL ONE (09:25)
[2018-06-15] MEDS ORDERED: DEXAMETHASONE 4 MG/ML VIAL ONE (09:25)
[2018-06-15] MEDS ORDERED: ROCURONIUM 100 MG/10 ML VIAL ONE (09:25)
[2018-06-15] MEDS ORDERED: METOCLOPRAMIDE 10 MG/2 ML VIAL ONE (11:04)
[2018-06-15] MEDS ORDERED: BUPIVACAINE 0.25% 30 ML SDV ONE (12:20)
[2018-06-15] MEDS ORDERED: LACTULOSE 20 GM/30 ML UDCUP PO PRN (12:59)
[2018-06-15] MEDS ORDERED: MAGNESIUM HYDROXIDE 30 ML UDCUP PO PRN (12:59)
[2018-06-15] MEDS ORDERED: DIAZEPAM 2 MG TAB PO PRN (12:59)
[2018-06-15] MEDS ORDERED: ACETAMINOPHEN 325 MG TAB PO PRN (12:59)
[2018-06-15] MEDS ORDERED: BISACODYL 10 MG SUPP PR PRN (12:59)
[2018-06-15] MEDS ORDERED: NS 1,000 ML IV SCH (13:00)
[2018-06-15] MEDS ORDERED: METOCLOPRAMIDE 10 MG/2 ML VIAL IVP PRN (13:01)
[2018-06-15] MEDS ORDERED: diphenhydrAMINE 25 MG CAP PO PRN (13:01)
[2018-06-15] MEDS ORDERED: HYDROmorphONE/DILAUDID 6 MG/30 ML PCA IV PRN (13:01)
[2018-06-15] MEDS ORDERED: oxyCODONE IR 5 MG TAB PO SCH (15:00)
--- NOTE | 2018-06-15 15:13 | PDMN ---
Medical Necessity Medical necessity: [facility] musculoskeletal sgy ELIANE INPT only R RYLIE periacetabular osteotomy
--- NOTE | 2018-06-15 15:39 | ASMTCMCOM ---
CM Note CM Note Notes: Pt is s/p a R periacetabular osteotomy. She has a hx of hip dysplasia. She lives in [facility] with her and 3 children. Anticipate d/c with no CM needs when medically cleared but will continue to follow for any change in needs. D/C Plan: Anticipate d/c home Independent Date Signed: 06/15/2018 03:25 PM Electronically Signed By:BRI Thorne
[2018-06-15] MEDS: HYDROmorphONE/DILAUDID 2 MG TAB PO SCH ×4 (16:10→23:49)
[2018-06-15] MEDS: NAPROXEN SODIUM 220 MG TAB PO SCH ×2 (16:10→20:51)
[2018-06-15] MEDS: POLYETHYLENE GLYCOL 3350 17 GM PKT PO PRN (18:37)
[2018-06-15] MEDS: SENNOSIDES/DOCUSATE SODIUM TAB PO SCH (20:51)
[2018-06-15] MEDS: NORGESTIMATE ETHINYL ESTRADIOL PO SCH (20:51)
--- NOTE | 2018-06-15 20:55 | SUROPNOTE ---
MEHNAZ Operative Report - Surgery Surgery was performed at [facility] on~06/15/18~ Diagnosis:~Right 1. Hip Acetabular Dysplasia ~ Operation: Right~Suze Acetabular Osteotomy (RYLIE) Surgeon: Obi Rios MD Busboy:~~Melly Douglas MD Anesthetic: General +~spinal Procedure: General anesthetic. Antibiotics given. Cell saver in use. Fluoroscopy. Phase 1: Position lateral, diagonal skin incision between ischial tuberosity and greater trochanter as for posterior hip approach. Blunt split of glut max fibers. Identification of fat pad overlying sciatic nerve. Exposure of sciatic nerve under fat pad, gently retracting it away-medially to ischial tuberosity. Exposure of subcotoloid fossa proximal to short rotators. Using osteotomes and under fluoroscopy, osteotomy of subcotoloid fossa to sciatic notch proximal to ischial spine. Closure of lateral cut. Patient is turned supine. Phase 2: Skin incision just distal to ASIS. Using diathermy the iliac spine was exposed and inguinal ligament + Sartorious were retracted medially, taking the LFCN with them, protecting it. Inner ilium was dissected from iliacus muscle bluntly , with a cob and swab. Dissection continued towards lateral superior ramus pubis. Using fluoroscopy an osteotomy of lateral superior ramus, just medial to tear drop, was performed with~curved fish mouth osteotome. Phase 3: Osteotomy lines of the ilium were marked with diathermy as pre planned according to XR/CT and expected correction of acatabulum. 2 Shanz screws were drilled into central acetabular fragment, corresponding with planned correction angles, in order to mobilize central acetabular fragment after osteotomy is complete. ~Iliac osteotomy was performed with reciprocating saw and the main acetabular fragment was moved to realign weight bearing position. After confirmation of correction using fluoroscopy in AP and false profile planes, the fragment was fixed with 2 -~5.5mm~~full threaded~screws~and 1 -~4mm~~full threaded~screw. Inguinal ligament and Sartorious were attached back to ASIS through drill holes. Incision was closed according to soft tissue layers. Skin was closed with~subdermal Monocryl. Final fluoro shots were obtained to confirm position/correction. After surgery~Robyn~moved both lower limbs and had no NV motor compromise. Specimen - none Bleeding -~300ml Complication - none Evaluation under anesthesia: IR at 90 degrees hip flexion prior to RYLIE was~30~degrees and after RYLIE was 5-10~ degrees. Bleeding:~300~cc into cell-saver, 135~of blood products were returned to patient. Post op instructions: 1.~Non~weight bearing crutches for 3~weeks 2. Epidural analgesia for 24-48 hours 3. Continuous SCD 4. Aspirin 81 mg X1 day once Epidural is discontinued 5. Avoid hip flexion past 90 and hip External rotation. 6. PT according to my recommendations at follow up visit Kind regards, Dr. Obi Rios .
[2018-06-16] MEDS: HYDROmorphONE/DILAUDID 2 MG TAB PO SCH ×8 (02:59→23:44)
[2018-06-16] MEDS: SENNOSIDES/DOCUSATE SODIUM TAB PO SCH ×2 (07:54→21:15)
[2018-06-16] MEDS: NAPROXEN SODIUM 220 MG TAB PO SCH ×3 (07:55→21:14)
[2018-06-16] MEDS: POLYETHYLENE GLYCOL 3350 17 GM PKT PO PRN (07:56)
[2018-06-16] MEDS: PANTOPRAZOLE SODIUM 40 MG TAB PO SCH (07:56)
[2018-06-16] MEDS: ONDANSETRON DISINTEGRATING 4 MG TAB PO PRN (09:54)
--- NOTE | 2018-06-16 20:23 | SOAPPROG ---
MARLY Progress Note Assessment/Plan: Assessment: 1 day post op Right Periacetabular Osteotomy Plan: Dilaudid PO Up with PT/OT Pelvis X-ray tomorrow am; if this looks good will discharge her home 06/16/18 20:20 Subjective: Robyn is doing very well this evening. The Perdomo was discontinued today, she was up with PT/OT and nursing staff, going up and down stairs and ambulating the halls. Her pain has been well managed with Dilaudid PO alone, no [employer]. She denies any cp no sob or nausea. She would like to go home tomorrow morning. Objective: Vital Signs Temp Pulse Resp BP Pulse Ox 36.8 C 88 16 114/71 92 06/16/18 20:00 06/16/18 20:00 06/16/18 20:00 06/16/18 20:00 06/16/18 20:00 Laboratory Results 06/16/18 05:15 06/16/18 05:15 06/15/18 06/16/18 06/17/18 05:59 05:59 05:59 Intake Total 4700 2440 Output Total 5100 350 Balance -400 2090 - Pending Discharge Pending Discharge Within 24 Hours: Yes Pending Discharge Date: 06/17/18 Pending Discharge Time: 11:00 ICD10 Worksheet Patient Problems: Problems Problem Status Onset Post-op pain Acute
[2018-06-16] MEDS: NORGESTIMATE ETHINYL ESTRADIOL PO SCH (21:14)
[2018-06-17] MEDS: HYDROmorphONE/DILAUDID 2 MG TAB PO SCH ×4 (03:02→12:16)
[2018-06-17] MEDS: ONDANSETRON DISINTEGRATING 4 MG TAB PO PRN (03:45)
[2018-06-17 04:02] VITALS: BP 103/62
[2018-06-17] MEDS: POLYETHYLENE GLYCOL 3350 17 GM PKT PO PRN (08:27)
[2018-06-17] MEDS: SENNOSIDES/DOCUSATE SODIUM TAB PO SCH (08:28)
[2018-06-17] MEDS: NAPROXEN SODIUM 220 MG TAB PO SCH (08:28)
[2018-06-17] MEDS: PANTOPRAZOLE SODIUM 40 MG TAB PO SCH (08:29)
--- NOTE | 2018-06-17 09:03 | POSTANESTH ---
Post Anesthetic Evaluation Cardiovascular Status: Normal, Stable Respiratory Status: Normal, Stable Level of Consciousness/Mental Status: Can Participate in Eval Pain Control: Adequate, Prn Tx Ordered Nausea/Vomiting Control: Adequate, Prn Tx Ordered Complications Possibly Related to Anesthesia: None Noted
[2018-06-17] MEDS ORDERED: ASPIRIN EC 81 MG TAB PO SCH (12:59)
--- NOTE | 2018-06-17 13:39 | ASMTLACE ---
ELINOR Length of stay for Answers: 3 days current admission Acuity / Level of Answers: Yes Care: Did the patient have an inpatient admission? # of Emergency department Answers: 0 visits in the last 6 months Score: 6 Date Signed: 06/17/2018 01:38 PM Electronically Signed By:BRI Alonzo
--- NOTE | 2018-06-17 13:40 | ASMTCMCOM ---
CM Note CM Note Notes: Pt medically stable for d/c with family support, no CM d/c needs identified. Date Signed: 06/17/2018 01:40 PM Electronically Signed By:BRI Alonzo
== END 2018-06-17 13:52 | disposition home or self-care (01) | DRG 517 ==
LOC: FSGY 05:52 → F3N 15:01
PROVIDERS: ADMIT Orthopaedic Surgery Sports Medicine; ATTEND Orthopaedic Surgery Sports Medicine
PROC: 0QS404Z Reposition Right Acetabulum with Internal Fixation Device, Open Approach (ICD-10-PCS; principal; 2018-06-15 07:15)
DX: Q65.89 Other specified congenital deformities of hip (principal); M25.851 Other specified joint disorders, right hip
CPT/HCPCS: 97116-GP; 97161-GP; 97165-GO; 97530-GP; C1713; J0690; J1100; J1170; J2250; J2405; J2704; J2765; J3010

== ENCOUNTER 2019-01-18 05:38 | Day surgery (SDC) | payer OTHER | END 2019-01-18 10:15 | disposition home or self-care (01) | LOC: FSGY 05:38 ==